=== PATIENT | female | born 1945 | race Caucasian/White ===

== ENCOUNTER 2021-07-06 16:58 | Inpatient (IN) | payer MEDICARE, OTHER, SELFPAY ==
[2021-07-06 17:51] VITALS: BP 149/72; PULSE 63; RESP 18; TEMP 37.1; O2SAT 93; BMI 44.8
[2021-07-06 20:28] VITALS: BP 127/68; PULSE 58; RESP 18; O2SAT 98
--- NOTE | 2021-07-06 20:45 | XRR_ITS ---
PROCEDURE INFORMATION: Exam: XR Chest Exam date and time: 07/06/2021 8:45 PM Age: 76 years old Clinical indication: Apnea; Patient HX: SOB 1 week; Additional info: AMS TECHNIQUE: Imaging protocol: XR of the chest. Views: 1 view. COMPARISON: [facility] Abdomen 1 view 08/31/2019 11:06 AM FINDINGS: Lungs: Lungs are clear. Pleural spaces: There is no pleural effusion or pneumothorax. Heart/Mediastinum: The cardiac silhouette is within normal limits of size given AP technique. Bones/joints: Bones are unremarkable. XR/XR chest 1V portable [id number] IMPRESSION: No acute findings.
--- NOTE | 2021-07-06 20:45 | CTR_ITS ---
PROCEDURE INFORMATION: Exam: CT Head Without Contrast Exam date and time: 07/06/2021 8:45 PM Age: 76 years old Clinical indication: Altered mental status/memory loss; Additional info: AMS TECHNIQUE: Imaging protocol: Computed tomography of the head without contrast. Radiation optimization: All CT scans at this facility use at least one of these dose optimization techniques: automated exposure control; mA and/or kV adjustment per patient size (includes targeted exams where dose is matched to clinical indication); or iterative reconstruction. COMPARISON: No relevant prior studies available. RADIATION DOSE METRICS: Total DLP (mGy-cm): 927.55 FINDINGS: Brain: The brain is unremarkable. There is no mass effect or significant white matter disease. There is no acute intracranial hemorrhage. Cerebral ventricles: There is no significant ventricular dilation. The basal cisterns are unremarkable. Paranasal sinuses: The paranasal sinuses are clear. Mastoid air cells: The mastoid air cells are clear. Bones/joints: The calvarium is intact. Soft tissues: Unremarkable. CT/CT head wo con* [id number] IMPRESSION: No acute intracranial abnormality. Radiation Dose CTDIVOL = (mGy): DLP = 927.55 (mGy-cm)
[2021-07-06 20:46] VITALS: PULSE 62; RESP 18; TEMP 37.1; O2SAT 98
[2021-07-06 21:25] LABS: Add Urine Microscopic? YES; Bilirubin Urine Neg (Negative); Blood Urine 2+ (Negative); Glucose Urine UA Norm (Normal); Ketones Urine Negative (Negative); Leukocyte Esterase Urine 2+ (Negative); Nitrate Urine Positive (Negative); Protein Urine Neg (Negative); Urine Color Yellow (Yellow); Urobilinogen Urine Norm (Negative); pH Urine 5 (5-7)
[2021-07-06 21:27] LABS: Add Urine Culture? No; Bacteria Urine 4+ /hpf; Squamous Epithelial Cell Urine 25-40 /hpf (0-5); WBC Urine >100 /hpf (0-5)
[2021-07-06 22:54] VITALS: BP 157/73; PULSE 55; RESP 18; TEMP 37.1; O2SAT 100
[2021-07-06 23:05] LABS: Basophils # 0.1 10^3/uL (0.0-0.1); Basophils % 0.7 %; Eosinophils # 0.2 10^3/uL (0.0-0.8); Eosinophils % 2.5 %; Hematocrit 38.6 % (37.0-47.0); Hemoglobin 12.1 g/dL (11.5-15.3); Lymphocytes # 2.8 10^3/uL (0.8-4.8); Lymphocytes % 29.2 %; Mean Corpuscular HGB Conc 31.3 g/dL (30.0-36.0); Mean Corpuscular Hemoglobin 27.7 pg (28.0-34.0); Mean Corpuscular Volume 88.3 fl (81-99); Mean Platelet Volume 8.4 fL (7.4-10.4); Monocytes # 0.7 10^3/uL (0.2-0.9); Monocytes % 6.9 %; Neutrophils # 5.81 10^3/uL (1.8-7.7); Neutrophils % 60.5 %; Nucleated Red Blood Cells % 0 %; Platelet Count 295 10^3/cmm (130-400); Red Blood Count 4.37 10^6/uL (4.1-5.3); Red Cell Distribution Width 14.6 % (12.1-15.1); White Blood Count 9.6 10^3/uL (4.0-10.0)
--- NOTE | 2021-07-06 23:08 | ED_ITS ---
HPI - Neuro Symptoms/Deficit General: Chief Complaint: Neuro Symptoms/Deficit Stated Complaint: weakness, dementia-confused, npu eval per Time Seen by Provider: 07/06/21 20:11 Source: patient, family (), RN notes reviewed and old records reviewed Mode of arrival: ambulatory Limitations: other (dementia) History of Present Illness: HPI Narrative: 76-year-old female patient was brought into the emergency department by her with concerns worsening dementia. He states that she has been diagnosed with Alzheimer's dementia and that for the last 6 months or so she has been having trouble sleeping. He also states that in the last week or so she has been wandering a lot and leaving the house and it makes it hard for him to keep track of her. He states that she is complaining of abdominal pain, although the patient denies any pain at this time. Associated symptoms: Deny chest pain, cough, diaphoresis, fevers/chills, headache(s), anorexia, malaise, nausea, seizures, short of breath, syncope, tingling, vertigo, vomiting or weakness Review of Systems General: Reports: 10 or more systems reviewed and unremarkable except in HPI and below Const: Denies: malaise or diaphoresis Card: Denies: chest pain or syncope GI: Denies: nausea or vomiting Neuro: Denies: headache(s) or vertigo Physical Exam Const: COMMON NORMALS: no acute distress, average body habitus, no limitations, healthy appearing, alert and well nourished HENMT: COMMON NORMALS: normocephalic, atraumatic and moist oral mucous membranes HEAD & SCALP: normocephalic and atraumatic Eye: COMMON NORMALS: Equal, round and reactive pupils present, EOMs intact bilaterally, conjunctivae normal and no scleral icterus CONJUNCTIVA: Yes conjunctivae normal PUPIL: Yes Equal, round and reactive pupils present Neck/C-Spine: COMMON NORMALS: no meningeal signs and no JVD Resp: COMMON NORMALS: normal respiratory effort, No retractions, No use of accessory muscles, clear to auscultation bilaterally and percussion normal AUSCULTATION: clear to auscultation bilaterally PERCUSSION: percussion normal Cardio: COMMON NORMALS: no JVD, regular rate, regular rhythm, S1 normal heart sound present, S2 normal heart sound present, No gallops present (Cardio), No clicks present (Cardio), No murmurs present (Cardio), No rub (Cardio) and Peripheral pulses 2+ throughout RATE: regular rate RHYTHM: regular rhythm HEART SOUNDS: S1 normal heart sound present and S2 normal heart sound present PERIPHERAL PULSES: Peripheral pulses 2+ throughout GI: COMMON NORMALS: Normal to inspection, nondistended, normoactive bowel sounds present, Soft to palpation, non-tender, No hepatosplenomegaly present, no masses and no bruits PALPATION: Yes Soft to palpation and Yes No hepatosplenomegaly present Extremity: COMMON NORMALS: normal to inspection, full ROM, capillary refill normal, no calf tenderness and no pedal edema Neuro: SENSORIUM/ORIENTATION: Yes alert and Yes Orientation impaired MENINGEAL SIGNS: Yes no meningeal signs Skin: COMMON NORMALS: no rashes or lesions noted, no wounds, turgor normal, no jaundice, no petechiae and no mottling GENERAL SKIN EXAM: no rashes or lesions noted and turgor normal Course Reevaluation(s): Reevaluation #1: Discussed her lab and imaging findings with her. Explained to the patient and her that she has a urinary tract infection. Was going to discharge her home, however the patient refused to go home with her . She said she wants to go to another house where they used to live but in [place] but not the current apartment. I tried to reason with her but she was adamant that that was what she was going to go to and was not going to leave with her . Because of these as her is an older gentleman I do not think it would be safe for him to take her home if she does not want to go with him. I have a feeling she may become physically violent. I therefore think it would be better for him and for her if she is admitted overnight and the disposition made in the morning. I had a conversation with the about long-term placement in a residential if he is unable to care for her. He states that he has not really thought about it but if he has to he has a residential in mind when he would like to place as he has been there in the past. Time: 23:40 Consultations: Consultation #1: Discussed the patient with Dr. Ball, hospitalist and she kindly accepted the patient to her service. Time: 23:57 Vital Signs: Vital signs: Vital Signs Temperature 98.7 F 07/07/21 01:03 Pulse Rate 56 L 07/07/21 01:03 Respiratory Rate 15 07/07/21 01:03 Blood Pressure 132/79 07/07/21 01:03 Pulse Oximetry 97 07/07/21 01:03 MDM - Neuro Symptoms/Deficit MDM Narrative: Medical decision making narrative: This unfortunate patient has a history of dementia and has had increased behaviors that I think are related to her dementia. She is sleeping less and has begun wandering around at night. She will likely has sundowning. In the emergency department work-up was unremarkable other than a urinary tract infection. However the patient refused to go home with her and have concerns that she may physically resist him and may becoming violent with the way she was adamantly refusing. Her is a frail elderly man and i am fearful his and the patient's safety. I therefore advised that the patient be admitted to the hospital overnight and we can work on safe and appropriate disposition during the day tomorrow. Medical Records: Attestation: I reviewed the patient's medical records. Lab Data: Attestation: I reviewed the patient's lab results. Labs: Lab Results 07/06/21 07/06/21 07/06/21 Range/Units 20:51 22:51 22:51 WBC 9.6 (4.0-10.0) 10^3/ uL RBC 4.37 (4.1-5.3) 10^6/u L Hgb 12.1 (11.5-15.3) g/dL Hct 38.6 (37.0-47.0) % MCV 88.3 (81-99) fl MCH 27.7 L (28.0-34.0) pg MCHC 31.3 (30.0-36.0) g/dL RDW 14.6 (12.1-15.1) % Plt Count 295 (130-400) 10^3/c mm MPV 8.4 (7.4-10.4) fL Neut % (Auto) 60.5 % Lymph % (Auto) 29.2 % [place] % (Auto) 6.9 % Eos % (Auto) 2.5 % Baso % (Auto) 0.7 % Neut # (Auto) 5.81 (1.8-7.7) 10^3/u L Lymph # (Auto) 2.8 (0.8-4.8) 10^3/u L [place] # (Auto) 0.7 (0.2-0.9) 10^3/u L Eos # (Auto) 0.2 (0.0-0.8) 10^3/u L Baso # (Auto) 0.1 (0.0-0.1) 10^3/u L Nucleated RBC % (a uto) 0 % Nucleated RBCs # 0.0 /100WBC Sodium 136 (136-145) mmol/L Potassium 3.2 L (3.5-5.1) mmol/L Chloride 98 (98-107) mmol/L Carbon Dioxide 27 (22-29) mmol/L Anion Gap 14.2 (5-19) BUN 20 (8-23) mg/dL Creatinine 0.6 (0.5-0.9) mg/dL GFR Calculation Not Reportable Glucose 112 (65-115) mg/dL Calculated Osmolal ity 285 (285-295) mOsm/k g Calcium 8.7 (8.5-10.5) mg/dL Total Bilirubin 0.3 (0.15-1.2) mg/dL AST 16 (0-32) U/L ALT 16 (0-33) U/L Alkaline Phosphata se 79 (35-105) IU/L C-Reactive Protein 7.2 H (0.0-4.9) mg/L Total Protein 7.0 (6.6-8.7) g/dL Albumin 3.6 (3.5-5.2) g/dL Globulin 3.4 (1.3-4.6) g/dL Urine Color Yellow (Yellow) Urine Appearance Sl cloudy A (CLEAR) Urine pH 5 (5-7) Ur Specific Gravit y 1.020 (1.005-1.030) Urine Protein Neg (Negative) Urine Glucose (UA) Norm (Normal) Urine Ketones Negative (Negative) Urine Blood 2+ H (Negative) Urine Nitrate Positive H (Negative) Urine Bilirubin Neg (Negative) Urine Urobilinogen Norm (Negative) mg/dL Ur Leukocyte Bell ase 2+ H (Negative) Urine RBC 10-15 H (0-2) /hpf Urine WBC >100 H (0-5) /hpf Ur Squamous Epith Cells 25-40 H (0-5) /hpf Amorphous Sediment Not Reportable Urine Bacteria 4+ H (NONE) /hpf 07/06/21 Range/Units 23:15 WBC (4.0-10.0) 10^3/ uL RBC (4.1-5.3) 10^6/u L Hgb (11.5-15.3) g/dL Hct (37.0-47.0) % MCV (81-99) fl MCH (28.0-34.0) pg MCHC (30.0-36.0) g/dL RDW (12.1-15.1) % Plt Count (130-400) 10^3/c mm MPV (7.4-10.4) fL Neut % (Auto) % Lymph % (Auto) % [place] % (Auto) % Eos % (Auto) % Baso % (Auto) % Neut # (Auto) (1.8-7.7) 10^3/u L Lymph # (Auto) (0.8-4.8) 10^3/u L [place] # (Auto) (0.2-0.9) 10^3/u L Eos # (Auto) (0.0-0.8) 10^3/u L Baso # (Auto) (0.0-0.1) 10^3/u L Nucleated RBC % (a uto) % Nucleated RBCs # /100WBC Sodium (136-145) mmol/L Potassium (3.5-5.1) mmol/L Chloride (98-107) mmol/L Carbon Dioxide (22-29) mmol/L Anion Gap (5-19) BUN (8-23) mg/dL Creatinine (0.5-0.9) mg/dL GFR Calculation Glucose (65-115) mg/dL Calculated Osmolal ity (285-295) mOsm/k g Calcium (8.5-10.5) mg/dL Total Bilirubin (0.15-1.2) mg/dL AST (0-32) U/L ALT (0-33) U/L Alkaline Phosphata se (35-105) IU/L C-Reactive Protein (0.0-4.9) mg/L Total Protein (6.6-8.7) g/dL Albumin (3.5-5.2) g/dL Globulin (1.3-4.6) g/dL Urine Color Yellow (Yellow) Urine Appearance Sl cloudy A (CLEAR) Urine pH 5 (5-7) Ur Specific Gravit y 1.015 (1.005-1.030) Urine Protein Neg (Negative) Urine Glucose (UA) Norm (Normal) Urine Ketones Negative (Negative) Urine Blood Neg (Negative) Urine Nitrate Positive H (Negative) Urine Bilirubin Neg (Negative) Urine Urobilinogen Norm (Negative) mg/dL Ur Leukocyte Bell ase 2+ H (Negative) Urine RBC (0-2) /hpf Urine WBC (0-5) /hpf Ur Squamous Epith Cells (0-5) /hpf Amorphous Sediment Urine Bacteria (NONE) /hpf Imaging Data^: CXR: Attestation: I personally reviewed and interpreted this imaging study as follows: Radiologist's impression: [address] [id number] ReportSigned Patient: Medhat Wiseman #: [id number]: 1945cct#:[id number]/Sex: 76 / FADM Date: 07/06/21Loc: ERRoom/Bed:Attending Dr: Ordering Provider/Ordering MD: Rosi Cortes MD, [facility] [place] Date of Service: 07/06/21 Procedure(s): XR chest 1V portable [id number] Accession Number(s): [id number] Report Number: [id number] PROCEDURE INFORMATION: Exam: XR Chest Exam date and time: 07/06/2021 8:45 PM Age: 76 years old Clinical indication: Apnea; Patient HX: SOB 1 week; Additional info: AMS TECHNIQUE: Imaging protocol: XR of the chest. Views: 1 view. COMPARISON: [facility] Abdomen 1 view 08/31/2019 11:06 AM FINDINGS: Lungs: Lungs are clear. Pleural spaces: There is no pleural effusion or pneumothorax. Heart/Mediastinum: The cardiac silhouette is within normal limits of size given AP technique. Bones/joints: Bones are unremarkable. XR/XR chest 1V portable [id number] IMPRESSION: No acute findings. Dictated By:Marcio Luke MDSigned By:Marcio Luke MDSigned Date/Time:07/06/21/ 44 CT Head: Attestation: I personally reviewed and interpreted this imaging study as follows: Radiologist's impression: Jess [address] [id number] Scan ReportSigned Patient: Medhat Wiseman #: [id number]: 1945cct#:[id number]/Sex: 76 / FADM Date: 07/06/21Loc: ERRoom/Bed:Attending Dr: Ordering Provider/Ordering MD: Rosi Cortes MD, [facility] [place] Date of Service: 07/06/21 Procedure(s): CT head wo con* [id number] Accession Number(s): [id number] Report Number: [id number] PROCEDURE INFORMATION: Exam: CT Head Without Contrast Exam date and time: 07/06/2021 8:45 PM Age: 76 years old Clinical indication: Altered mental status/memory loss; Additional info: AMS TECHNIQUE: Imaging protocol: Computed tomography of the head without contrast. Radiation optimization: All CT scans at this facility use at least one of these dose optimization techniques: automated exposure control; mA and/or kV adjustment per patient size (includes targeted exams where dose is matched to clinical indication); or iterative reconstruction. COMPARISON: No relevant prior studies available. RADIATION DOSE METRICS: Total DLP (mGy-cm): 927.55 FINDINGS: Brain: The brain is unremarkable. There is no mass effect or significant white matter disease. There is no acute intracranial hemorrhage. Cerebral ventricles: There is no significant ventricular dilation. The basal cisterns are unremarkable. Paranasal sinuses: The paranasal sinuses are clear. Mastoid air cells: The mastoid air cells are clear. Bones/joints: The calvarium is intact. Soft tissues: Unremarkable. CT/CT head wo con* [id number] IMPRESSION: No acute intracranial abnormality. Radiation Dose CTDIVOL = (mGy): DLP = 927.55 (mGy-cm) Dictated By:Marcio Luke MDSigned By:Marcio Luke MDSigned Date/Time:07/06/21/ 56 Discharge Plan Discharge Patient Disposition: Admitted As Inpatient Admit Provider: Gwen Ball Clinical Impression: UTI (urinary tract infection) Qualifiers: Urinary tract infection type: acute cystitis Hematuria presence: without hematuria Qualified Code(s): N30.00 - Acute cystitis without hematuria Dementia Qualifiers: Dementia type: unspecified type Dementia behavioral disturbance: with behavioral disturbance Qualified Code(s): F03.91 - Unspecified dementia with behavioral disturbance Condition: Stable Coding Level of Care Code ED Vending Machine Host/Hostess for Chg Fwd Exam Comprehensive
[2021-07-06 23:29] LABS: Charge for UA Resulting for Rev
[2021-07-06 23:31] LABS: Alanine Aminotransferase 16 U/L (0-33); Albumin Level 3.6 g/dL (3.5-5.2); Alkaline Phosphatase 79 IU/L (35-105); Anion Gap 14.2 (5-19); Aspartate Amino Transferase 16 U/L (0-32); Blood Urea Nitrogen 20 mg/dL (8-23); C Reactive Protein 7.2 mg/L (0.0-4.9); Calcium 8.7 mg/dL (8.5-10.5); Carbon Dioxide 27 mmol/L (22-29); Chloride 98 mmol/L (98-107); Globulin 3.4 g/dL (1.3-4.6); Glucose 112 mg/dL (65-115); Osmolality Calculated 285 mOsm/kg (285-295); Potassium 3.2 mmol/L (3.5-5.1); Sodium 136 mmol/L (136-145); Total Bilirubin 0.3 mg/dL (0.15-1.2)
[2021-07-06 23:40] LABS: Blood Urine Neg (Negative); Glucose Urine UA Norm (Normal); Ketones Urine Negative (Negative); Protein Urine Neg (Negative); Specific Gravity, Urine 1.015 (1.005-1.030); Urine Color Yellow (Yellow); pH Urine 5 (5-7)
[2021-07-06 23:41] LABS: Add Urine Microscopic? YES; Bilirubin Urine Neg (Negative); Leukocyte Esterase Urine 2+ (Negative); Nitrate Urine Positive (Negative); Urobilinogen Urine Norm (Negative)
[2021-07-07] VITALS (10 sets, daily range): BP systolic 108–137; BP diastolic 62–84; PULSE 54–78; RESP 15–18; TEMP 36.7–37.1; O2SAT 92–99; BMI 45.2
[2021-07-07] MEDS: cefTRIAXone 1,000 MG in sodium chloride 0.9% (plus) 50 ML 100 MG IV ×2 (00:50→19:37)
--- NOTE | 2021-07-07 01:41 | PM.HP ---
Providers/Chief Complaint Admitting Physician: Gwen Ball MD Chief Complaint: weakness, dementia-confused, npu eval per History of Present Illness Limited history is available at this time due to patient's dementia. History is obtained from talking to ER physician. is not currently reachable at this time. Petty Wiseman is a 76 year old female with a past medical history of dementia who was brought into the emergency room by her due to worsening confusion over the past 2 weeks., Uncertain of her current baseline as cannot get details from her . There has been no history of fever cough dyspnea chest pain palpitations dysuria, abdominal pain nausea or vomiting. Work-up in the ER today was notable for a positive UA with positive nitrite and leuk esterase and high WBC consistent with a urinary tract infection. Patient is otherwise hemodynamically stable. At this present time she is able to correctly tell me her name , her date of is April 05, however she does not know the year. She correctly identifies her as cassandra. She tells me she is 36 years old. She knows that she is in a hospital but does not know which one. She does not know the president. She thinks she came to the hospital today as her left arm needed to be evaluated, however is unable to tell me what was specifically going on with the arm. Review of Systems General: Reports: ROS unobtainable due to medical condition Medications/Allergies Allergies Allergy/AdvReac Type Severity Reaction Status Date / Time tetanus toxoid, adsorbed Allergy ALGY-Hives Verified 07/06/21 17:50 Vitals/I&O/Wt Last Vital Signs Temp 98.7 F 07/07/21 01:03 Pulse 56 L 07/07/21 01:03 Resp 15 07/07/21 01:03 BP 132/79 07/07/21 01:03 Pulse Ox 97 07/07/21 01:03 Weight last 48 hrs Weight 119.465 kg Weight 111.13 kg Physical Exam Narrative: EXAM NARRATIVE: GENERAL: Awake, alert, oriented x1, in no acute distress. [] HEENT: Normocephalic, atraumatic, PERRLA. [] CHEST: Clear to auscultation bilaterally. [] CVS: S1, S2 normal. No murmur, rubs, gallops. Peripheral pulses palpable. [] ABDOMEN: Soft, nontender. Nondistended. Bowel sounds heard. [] NEUROVASCULAR: Awake, disoriented, confused. Power 5/5 all extremities. DTR+ [] EXTREMITIES: No edema. [] Data : 07/06/21 22:51 07/06/21 22:51 Other Labs: Laboratory Results WBC 9.6 10^3/uL (4.0-10.0) 07/06/21 22:51 RBC 4.37 10^6/uL (4.1-5.3) 07/06/21 22:51 Hgb 12.1 g/dL (11.5-15.3) 07/06/21 22:51 Hct 38.6 % (37.0-47.0) 07/06/21 22:51 MCV 88.3 fl (81-99) 07/06/21 22:51 MCH 27.7 pg (28.0-34.0) L 07/06/21 22:51 MCHC 31.3 g/dL (30.0-36.0) 07/06/21 22:51 RDW 14.6 % (12.1-15.1) 07/06/21 22:51 Plt Count 295 10^3/cmm (130-400) 07/06/21 22:51 MPV 8.4 fL (7.4-10.4) 07/06/21 22:51 Neut % (Auto) 60.5 % 07/06/21 22:51 Lymph % (Auto) 29.2 % 07/06/21 22:51 [place] % (Auto) 6.9 % 07/06/21 22:51 Eos % (Auto) 2.5 % 07/06/21 22:51 Baso % (Auto) 0.7 % 07/06/21 22:51 Neut # (Auto) 5.81 10^3/uL (1.8-7.7) 07/06/21 22:51 Lymph # (Auto) 2.8 10^3/uL (0.8-4.8) 07/06/21 22:51 [place] # (Auto) 0.7 10^3/uL (0.2-0.9) 07/06/21 22:51 Eos # (Auto) 0.2 10^3/uL (0.0-0.8) 07/06/21 22:51 Baso # (Auto) 0.1 10^3/uL (0.0-0.1) 07/06/21 22:51 Nucleated RBC % (auto) 0 % 07/06/21 22:51 Nucleated RBCs # 0.0 /100WBC 07/06/21 22:51 Sodium 136 mmol/L (136-145) 07/06/21 22:51 Potassium 3.2 mmol/L (3.5-5.1) L 07/06/21 22:51 Chloride 98 mmol/L (98-107) 07/06/21 22:51 Carbon Dioxide 27 mmol/L (22-29) 07/06/21 22:51 Anion Gap 14.2 (5-19) 07/06/21 22:51 BUN 20 mg/dL (8-23) 07/06/21 22:51 Creatinine 0.6 mg/dL (0.5-0.9) 07/06/21 22:51 GFR Calculation Not Reportable 07/06/21 22:51 Glucose 112 mg/dL (65-115) 07/06/21 22:51 Calculated Osmolality 285 mOsm/kg (285-295) 07/06/21 22:51 Calcium 8.7 mg/dL (8.5-10.5) 07/06/21 22:51 Total Bilirubin 0.3 mg/dL (0.15-1.2) 07/06/21 22:51 AST 16 U/L (0-32) 07/06/21 22:51 ALT 16 U/L (0-33) 07/06/21 22:51 Alkaline Phosphatase 79 IU/L (35-105) 07/06/21 22:51 C-Reactive Protein 7.2 mg/L (0.0-4.9) H 07/06/21 22:51 Total Protein 7.0 g/dL (6.6-8.7) 07/06/21 22:51 Albumin 3.6 g/dL (3.5-5.2) 07/06/21 22:51 Globulin 3.4 g/dL (1.3-4.6) 07/06/21 22:51 TSH 1.98 uIU/mL (0.27-4.20) 07/06/21 22:51 Urine Color Yellow (Yellow) 07/06/21 23:15 Urine Appearance Sl cloudy (CLEAR) A 07/06/21 23:15 Urine pH 5 (5-7) 07/06/21 23:15 Ur Specific [place] 1.015 (1.005-1.030) 07/06/21 23:15 Urine Protein Neg (Negative) 07/06/21 23:15 Urine Glucose (UA) Norm (Normal) 07/06/21 23:15 Urine Ketones Negative (Negative) 07/06/21 23:15 Urine Blood Neg (Negative) 07/06/21 23:15 Urine Nitrate Positive (Negative) H 07/06/21 23:15 Urine Bilirubin Neg (Negative) 07/06/21 23:15 Urine Urobilinogen Norm mg/dL (Negative) 07/06/21 23:15 Ur Leukocyte Esterase 2+ (Negative) H 07/06/21 23:15 Urine RBC 10-15 /hpf (0-2) H 07/06/21 20:51 Urine WBC >100 /hpf (0-5) H 07/06/21 20:51 Ur Squamous Epith Cells 25-40 /hpf (0-5) H 07/06/21 20:51 Amorphous Sediment Not Reportable 07/06/21 20:51 Urine Bacteria 4+ /hpf (NONE) H 07/06/21 20:51 Impressions Chest X-Ray 07/06/21 20:45 IMPRESSION: No acute findings. Head CT 07/06/21 20:45 IMPRESSION: No acute intracranial abnormality. Radiation Dose CTDIVOL = (mGy): DLP = 927.55 (mGy-cm) A&P Assessment and plan (1) UTI (urinary tract infection): Status: Acute Qualifiers: Hematuria presence: without hematuria Urinary tract infection type: acute cystitis Qualified Code(s): N30.00 - Acute cystitis without hematuria (2) Dementia: Status: Acute Qualifiers: Dementia behavioral disturbance: with behavioral disturbance Dementia type: unspecified type Qualified Code(s): F03.91 - Unspecified dementia with behavioral disturbance Additional A&P Information 76-year-old lady with dementia presenting with worsening confusion over the last 2 weeks, on further evaluation found to have a UTI. Admit to MedSurg and observation. Empiric ceftriaxone 1 g IV every 24 hours Urine culture is currently pending. Patient is currently oriented x2, awaiting confirmation of baseline with . Attestations Medical Necessity Statement*: Less than 2 midnight admission anticipated for above defined care Coding Level of Care Code Acute [employer] Build[employer] Decorator for Chg Fwd Diagnoses UTI (urinary tract infection) N30.00 Hematuria presence: without hematuria Urinary tract infection type: acute cystitis Dementia F03.91 Dementia behavioral disturbance: with behavioral disturbance Dementia type: unspecified type
[2021-07-07] MEDS: enoxaparin 30 mg/0.3 mL Syringe SUBCUT (02:01)
[2021-07-07 02:22] LABS: Thyroid Stimulating Hormone 1.98 uIU/mL (0.27-4.20)
[2021-07-07] MEDS: pantoprazole DR 40 mg Tablet PO (09:07)
--- NOTE | 2021-07-07 09:19 | USR_ITS ---
PROCEDURE INFORMATION: Exam: US Retroperitoneal; Complete; Kidneys and Bladder Exam date and time: 07/07/2021 9:19 AM Age: 76 years old Clinical indication: Other: UTI; Additional info: UTI, R/O stone TECHNIQUE: Imaging protocol: Real-time ultrasound of the retroperitoneum with image documentation. Complete exam focused on the kidneys and bladder. COMPARISON: [facility] Abdomen 1 view 08/31/2019 11:06 AM FINDINGS: Right kidney: Lower pole cyst 1.1 cm x 0.9 cm x 1.2 cm. The right kidney measures 12.5 cm x 4.8 cm x 4.4 cm Left kidney: Parapelvic cyst lower pole 2 cm x 2 cm x 0.8 cm No stones. No hydronephrosis. 11.3 cm x 6.7 cm x 3.9 cm Urinary bladder: Is not visible Other findings: Inferolateral cyst 3 cm x 2.6 cm x 2.4 cm No stones. No hydronephrosis. US/US renal BI* [id number] IMPRESSION: 1. Bilateral benign renal cyst 2. Otherwise unremarkable kidneys 3. Urinary bladder is not visible
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
[2021-07-08] MEDS: haloperidol inj 5 mg/mL INJ 1 mL 2 MG IM (02:16)
--- NOTE | 2021-07-08 02:17 | PC.NURSE ---
Pt woke up very agitated and was yelling at sitter. Pt was wanting to leave hospital, then she was angry at nurses. IM haldol was administered by nurse.
[2021-07-08 06:16] LABS: Basophils # 0.1 10^3/uL (0.0-0.1); Basophils % 0.5 %; Eosinophils # 0.2 10^3/uL (0.0-0.8); Eosinophils % 2.3 %; Hematocrit 37.1 % (37.0-47.0); Hemoglobin 11.5 g/dL (11.5-15.3); Lymphocytes # 2.1 10^3/uL (0.8-4.8); Lymphocytes % 23.2 %; Mean Corpuscular Hemoglobin 27.6 pg (28.0-34.0); Mean Corpuscular Volume 89.2 fl (81-99); Mean Platelet Volume 8.4 fL (7.4-10.4); Monocytes # 0.7 10^3/uL (0.2-0.9); Monocytes % 7.2 %; Neutrophils # 6.07 10^3/uL (1.8-7.7); Neutrophils % 66.5 %; Nucleated Red Blood Cells % 0 %; Platelet Count 245 10^3/cmm (130-400); Red Blood Count 4.16 10^6/uL (4.1-5.3); Red Cell Distribution Width 14.6 % (12.1-15.1); White Blood Count 9.1 10^3/uL (4.0-10.0)
--- NOTE | 2021-07-08 06:19 | PC.NURSE ---
ROUNDING NOTE Slept after receiving IM Haldol. Awake and up to bathroom at this time. Confused but very cooperative and pleasant at this time. No further agitation observed. 1:1 sitter at bedside through shift
[2021-07-08 06:44] LABS: Alanine Aminotransferase 14 U/L (0-33); Albumin Level 3.4 g/dL (3.5-5.2); Alkaline Phosphatase 77 IU/L (35-105); Anion Gap 14.2 (5-19); Aspartate Amino Transferase 16 U/L (0-32); Blood Urea Nitrogen 16 mg/dL (8-23); Calcium 8.6 mg/dL (8.5-10.5); Carbon Dioxide 26 mmol/L (22-29); Chloride 98 mmol/L (98-107); Glucose 112 mg/dL (65-115); Magnesium 2.2 mg/dL (1.7-2.3); Osmolality Calculated 282 mOsm/kg (285-295); Phosphorus 3.3 mg/dL (2.5-4.5); Potassium 3.2 mmol/L (3.5-5.1); Sodium 135 mmol/L (136-145); Total Bilirubin 0.5 mg/dL (0.15-1.2); Total Protein 6.4 g/dL (6.6-8.7)
[2021-07-08 07:35] VITALS: BP 144/72; PULSE 68; RESP 18; TEMP 37.1; O2SAT 98
[2021-07-08 08:00] VITALS: BP 144/72; PULSE 68; RESP 18; TEMP 37.1
[2021-07-08] MEDS: pantoprazole DR 40 mg Tablet PO (08:09)
--- NOTE | 2021-07-08 08:58 | PC.CHAP ---
Pastoral Care Encounter/Spiritual Assessment Type of Contact [] Declined bird raiser visit [] Patient/Family/Request visit [] Outpatient visit [] Follow-up visit [] Physician referral [] Code/Alert [x] Routine visit [] Staff referral [] Actively dying [] Patient sleeping [] Family support [] [] Out of room [] Palliative care [] [] Receiving care in room [] Pre-surgical visit [] Trauma [] Long length of stay [] ICU visit [] Other: Relational/Emotional Strength [] Patient feels connected with others/family/visitors/staff [] Distress [] Loneliness/isolation [] Abandonment Spirituality of Patient [] Person of [place] [] Attends Anglican of their [place] [] Believes in Prayer [] Reads Bible or Nondenominational materials [] There are Spiritual issues to be addressed Superintendent [employer] Interventions [x] Prayer [] Active listening [] Non-anxious presence [] Spiritual/emotional support [] Crisis/trauma care [] Spiritual counseling [] Bereavement support [] Provided bereavement packet [] Provided Bible/devotional materials [] Provided toy/stuffed animal, coloring book to patient or family member [] Provided Communion [] Anointing/[place] [] Salvation [x] Completed spiritual assessment [] Other: Impact on Illness or Injury [] Angry [] Fearful [] Anxious [] Often cries [] Exhaustion [] Unable to work [] Unable to attend taoist [] Unable to walk/stand [] Unable to read [] Unable to drive [] Unable to eat/drink [] Unable to sleep [] Unable to be with family [] Patient intubated [] Other: Summary Time spent with patient
[2021-07-08] MEDS: potassium chloride ER 20 mEq Tablet 40 MEQ PO (10:14)
[2021-07-08 11:52] VITALS: BP 128/78; PULSE 68; RESP 16; TEMP 36.9; O2SAT 95
[2021-07-08 14:58] LABS: Coronavirus Test Green County Not Detected
[2021-07-08 15:17] VITALS: BP 139/70; PULSE 81; RESP 17; TEMP 36.3; O2SAT 97
[2021-07-08 16:34] VITALS: BP 139/70; PULSE 81; RESP 17; TEMP 36.3; O2SAT 97
--- NOTE | 2021-07-08 23:20 | PM.DCS ---
Discharge Providers Date of Admission: 07/07/21 15:41 Date of Discharge: 07/08/21 Attending Provider at Admission: Gwen Ball MD Attending Provider at Discharge: Fred Sterling MD Diagnoses at Discharge Discharge Diagnosis (1) UTI (urinary tract infection): Status: Acute Qualifiers: Hematuria presence: without hematuria Urinary tract infection type: acute cystitis Qualified Code(s): N30.00 - Acute cystitis without hematuria (2) Dementia: Status: Acute Qualifiers: Dementia behavioral disturbance: with behavioral disturbance Dementia type: unspecified type Qualified Code(s): F03.91 - Unspecified dementia with behavioral disturbance Reason for Visit Reason for Visit: weakness, dementia-confused, npu eval per Hospital Course Hospital Course 76yo F with history of dementia admitted for UTI. treated with IV abx. transitioned to oral abx. symptoms improved. she was discharged in improved condition. Physical Exam Narrative: EXAM NARRATIVE: NAD Lungs:CTA CVS:RRR ABD:soft, NT MSK: moves all extremities Discharge Data Data Completed and Pending: Completed Studies During Hospitalization Category Date Time Status CT head wo con* [id number] Urgent Cat Scan 07/06/21 20:45 Completed XR chest 1V octavia ble [id number] Stat Exams 07/06/21 20:45 Completed US renal BI* [id number] Routine Ultrasound 07/07/21 09:19 Completed Vitals: Last Vital Signs Temp 97.3 F L 07/08/21 16:34 Pulse 81 07/08/21 16:34 Resp 17 07/08/21 16:34 BP 139/70 07/08/21 16:34 Pulse Ox 97 07/08/21 16:34 Discharge Plan Discharge Patient Disposition: Home Condition: Stable Prescriptions: New Klor-Con 10 10 mEq tablet extended release 20 meq PO DAILY Qty: 20 RF: 0 Continued citalopram 10 mg tablet 10 mg PO DAILY RF: 0 amlodipine 5 mg tablet 5 mg PO DAILY RF: 0 hydrochlorothiazide 25 mg tablet 25 mg PO DAILY RF: 0 olmesartan 40 mg tablet 40 mg PO DAILY RF: 0 rosuvastatin 20 mg tablet 20 mg PO DAILY RF: 0 Exelon Patch 4.6 mg/24 hour patch 24 hour 4.6 mg transdermal DAILY RF: 0 Discharge Orders: Discharge Order (Routine); Ordered 07/08/21 Ordered By: Fred Sterling Referrals: Jeffrey Sun MD [Physician] - 07/16/21 11:00 am Discharge Diet: Usual diet Discharge Activity: Resume usual activity Patient Instructions: Potassium Chloride (By mouth), Cefdinir (By mouth), Urinary Tract Infection in Women (GEN), Opioid Safety Discharge Attestations Time Spent in Discharge Care*: less than 30 min Quality Metrics Clinical Quality Measures During this hospital stay, did patient experience: None Coding Level of Care Code Acute g [facility] note Diagnoses UTI (urinary tract infection) N30.00 Hematuria presence: without hematuria Urinary tract infection type: acute cystitis Dementia F03.91 Dementia behavioral disturbance: with behavioral disturbance Dementia type: unspecified type
--- NOTE | 2021-07-11 09:01 | PC.SOCIAL ---
discharge follow up call made, unable to reach, unable to leave a message.
== END 2021-07-08 16:35 | disposition home or self-care (01) | DRG 690 ==
LOC: ER 07-07 00:09 → MEDSURG 07-07 00:28
PROVIDERS: Family Medicine; Admitting Provider Student in an Organized Health Care Education/Training Program; Emergency Provider Family Medicine; Visit Provider Internal Medicine
DX: N30.01 Acute cystitis with hematuria (principal); F02.81 Dementia in other diseases classified elsewhere, unspecified severity, with behavioral disturbance; G30.9 Alzheimer's disease, unspecified; Z20.822 Contact with and (suspected) exposure to COVID-19
CPT/HCPCS: 36415; 70450; 71045; 76770; 80053; 81001; 81003; 83735; 84100; 84443; 85025; 86140; 87040; 87635; 96365; 96372; 97116; 97161; 99285; G0378; J0696; J1630; J1650

== ENCOUNTER 2021-07-24 12:26 | Outpatient (CLI) | payer MEDICARE, OTHER, SELFPAY | END 2021-07-24 12:27 | disposition home or self-care (01) | LOC: LAB 12:30 | PROVIDERS: Visit Provider Family Medicine | DX: R06.00 Dyspnea, unspecified (principal) | CPT/HCPCS: 85378 ==

== ENCOUNTER 2021-07-29 18:05 | Emergency (ER) | payer MEDICARE, OTHER, SELFPAY ==
--- NOTE | 2021-07-29 18:07 | XRR_ITS ---
PROCEDURE INFORMATION: Exam: XR Left Elbow Exam date and time: 07/29/2021 6:07 PM Age: 76 years old Clinical indication: Injury or trauma; Blunt trauma (contusions or hematomas); Injury date: 07/29/2021; Injury details: Patient could not get arm in true ap; Patient HX: Fall today; C/O pain left elbow, RT ankle, MADERA TECHNIQUE: Imaging protocol: XR Left elbow. Views: 3 or more views. COMPARISON: No relevant prior studies available. FINDINGS: Bones/joints: No acute fracture. No dislocation. Normal bone mineralization. No joint effusion. Joint spaces are maintained. Soft tissues: No soft tissue swelling. No radiopaque foreign body. XR/XR elbow LT min 3V* [id number] IMPRESSION: No acute fracture. Followup imaging recommended in 7-14 days if clinical concern for fracture persists.
[2021-07-29 18:15] VITALS: BP 142/85; PULSE 83; RESP 16; TEMP 36.9; O2SAT 100
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
--- NOTE | 2021-07-29 18:25 | CTR_ITS ---
PROCEDURE INFORMATION: Exam: CT Head Without Contrast Exam date and time: 07/29/2021 6:25 PM Age: 76 years old Clinical indication: Injury or trauma; Fall; Blunt trauma (contusions or hematomas); Additional info: Fall, head injury TECHNIQUE: Imaging protocol: Computed tomography of the head without contrast. Radiation optimization: All CT scans at this facility use at least one of these dose optimization techniques: automated exposure control; mA and/or kV adjustment per patient size (includes targeted exams where dose is matched to clinical indication); or iterative reconstruction. COMPARISON: CT head wo con* [id number] 07/06/2021 9:39 PM RADIATION DOSE METRICS: Total DLP (mGy-cm): 951.3 FINDINGS: Brain: Mild diffuse cortical volume loss. Mild hypodensities in supratentorial periventricular and subcortical white matter, consistent with microangiopathy. No intracranial hemorrhage. Cerebral ventricles: No ventriculomegaly. Paranasal sinuses: Visualized sinuses are unremarkable. No fluid levels. Mastoid air cells: Visualized mastoid air cells are well aerated. Vasculature: No hyperdense artery. Bones/joints: Unremarkable. No acute fracture. Soft tissues: Unremarkable. CT/CT head wo con* [id number] IMPRESSION: 1. No acute intracranial abnormality. Radiation Dose CTDIVOL = (mGy): DLP = 951.3 (mGy-cm)
--- NOTE | 2021-07-29 18:26 | XRR_ITS ---
PROCEDURE INFORMATION: Exam: XR Right Ankle Exam date and time: 07/29/2021 6:26 PM Age: 76 years old Clinical indication: Injury or trauma; Blunt trauma; Right; Injury date: 07/29/2021; Prior surgery; Surgery date: 6+ months; Surgery type: RT ankle hardware placed; Patient HX: Fall today; C/O pain RT ankle, MADERA, left elbow pain; Additional info: Fall injury TECHNIQUE: Imaging protocol: XR Right ankle. Views: 3 or more views. COMPARISON: No relevant prior studies available. FINDINGS: Bones/joints: Postsurgical changes consistent with previous tibiotalar joint fusion and resection of the lateral malleolus. No evidence for loosening of the surgical hardware. No acute fracture. No dislocation. Normal bone mineralization. Degenerative changes at the hindfoot. Small plantar calcaneal bone spur. Small calcified enthesophyte at the Achilles tendon insertion. Old, healed fracture of the distal diaphysis of the right fibula. Soft tissues: Mild soft tissue swelling medial to the ankle. No radiopaque foreign body. XR/XR ankle RT min 3V* [id number] IMPRESSION: 1. No acute fracture. Followup imaging recommended in 7-14 days if clinical concern for fracture persists. 2. Postsurgical changes consistent with previous tibiotalar joint fusion and resection of the lateral malleolus. No evidence for loosening of the surgical hardware. 3. Mild soft tissue swelling medial to the ankle. 4. Incidental/nonacute findings are listed in the report.
[2021-07-29 18:33] VITALS: BP 117/83; PULSE 65; RESP 18; O2SAT 97
--- NOTE | 2021-07-29 18:34 | ED_ITS ---
HPI - Fall General: Chief Complaint: Fall Stated Complaint: fall, L elbow injury Time Seen by Provider: 07/29/21 18:20 History of Present Illness: HPI Narrative: 76-year-old female comes in today for injury to the left elbow, right ankle, and neck. Patient states that she was walking up to her front door when she stepped and her foot went off the side of the concrete causing her to fall. Patient reports twisting her right ankle, landing and striking her left elbow against the ground and hitting her occipital scalp. Patient complains mainly of her left elbow but also make some general complaints of her right ankle and her neck. Patient takes medications routinely for cholesterol, blood pressure, depression. Patient responds appropriately to questions. Patient appears well. Associated symptoms-after fall: Reports neck pain Review of Systems General: Reports: 10 or more systems reviewed and unremarkable except in HPI and below Musc: Reports: neck pain and joint pain (left elbow, right ankle) Physical Exam Const: COMMON NORMALS: no acute distress and patient oriented x3 GENERAL APPEARANCE: cooperative HENMT: COMMON NORMALS: normocephalic, TM's normal bilaterally and Normal external nose present HEAD & SCALP: normal to inspection and normocephalic NOSE: Normal external nose present TYMPANIC MEMBRANE: TM's normal bilaterally MOUTH: Normal oral and palatal mucosa present Eye: GENERAL EYE: appearance normal, both eyes and all related structures Neck/C-Spine: COMMON NORMALS: full ROM CERVICAL SPINE: Yes Paracervical muscle tenderness right Lymph: LYMPHATIC: no lymphadenopathy noted Chest: COMMONS NORMALS: normal inspection of the chest Resp: COMMON NORMALS: normal respiratory effort EFFORT & INSPECTION: Yes able to speak in complete sentences Cardio: COMMON NORMALS: regular rate and regular rhythm RATE: regular rate RHYTHM: regular rhythm GI: COMMON NORMALS: non-tender : COMMON NORMALS: Yes no CVA tenderness BLADDER/KIDNEY EXAM: Yes no CVA tenderness Back/Pelvis: COMMON NORMALS: no CVA tenderness and thoracic and lumbar spine normal to inspection Extremity: NARRATIVE EXTREMITY EXAM: Tenderness is noted to the posterior left elbow, normal range of motion is noted. Tenderness is noted to the lateral right ankle, patient is able to bear weight but is guarded with movement. Neuro: COMMON NORMALS: patient oriented x3 and moves all extremities Psych: COMMON NORMALS: mental status grossly normal and cooperative Skin: COMMON NORMALS: no rashes or lesions noted GENERAL SKIN EXAM: no rashes or lesions noted Course Vital Signs: Vital signs: Vital Signs Temperature 98.4 F 07/29/21 18:15 Pulse Rate 65 07/29/21 18:33 Respiratory Rate 18 07/29/21 18:33 Blood Pressure 117/83 07/29/21 18:33 Pulse Oximetry 97 07/29/21 18:33 MDM - Fall MDM Narrative: Medical decision making narrative: Patient comes in for evaluation of injury sustained from a fall this afternoon. Patient had missed stepped on the concrete causing her to twist her right ankle and fall to the ground striking her left elbow and hitting the back of her head. On exam patient appears well. Patient moves all extremities well. Patient has no crepitus or swelling in the elbow or ankle. Patient does have some tenderness in both joints so. No obvious injuries noted to the occiput of the skull. Patient does have some muscle tenderness in the right side of the neck and trapezius area. Differential diagnosis includes intracranial bleeding, fracture, contusion, strain. CT of the head and neck indicated no fractures and no intracranial bleeding. X-rays of the elbow and ankle showed no acute injury. Reviewed exam with patient with recommendations for treatment and follow-up. Patient's reported understanding. Discharge Plan Discharge Patient Disposition: Home Clinical Impression: Fall Qualifiers: Encounter type: initial encounter Qualified Code(s): W19.XXXA - Unspecified fall, initial encounter Contusion of elbow, left Qualifiers: Encounter type: initial encounter Qualified Code(s): S50.02XA - Contusion of left elbow, initial encounter Cervical muscle strain Qualifiers: Encounter type: initial encounter Qualified Code(s): S16.1XXA - Strain of muscle, fascia and tendon at neck level, initial encounter Ankle pain, right Qualifiers: Chronicity: acute Qualified Code(s): M25.571 - Pain in right ankle and joints of right foot Condition: Stable Prescriptions: No Action citalopram 10 mg tablet 10 mg PO DAILY RF: 0 amlodipine 5 mg tablet 5 mg PO DAILY RF: 0 hydrochlorothiazide 25 mg tablet 25 mg PO DAILY RF: 0 olmesartan 40 mg tablet 40 mg PO DAILY RF: 0 rosuvastatin 20 mg tablet 20 mg PO DAILY RF: 0 Exelon Patch 4.6 mg/24 hour patch 24 hour 4.6 mg transdermal DAILY RF: 0 Klor-Con 10 10 mEq tablet extended release 20 meq PO DAILY Qty: 20 RF: 0 Discharge Orders: Discharge ED (Routine); Ordered 07/29/21 Ordered By: Federico Reynolds Discharge Diet: Usual diet Discharge Activity: Increase activity as tolerated Patient Instructions: Musculoskeletal Pain (ED), Opioid Safety Activity Restrictions/Additional Instructions: Activity as tolerated. Use acetaminophen, Tylenol, 1000 mg every 6 hours as needed for pain. Use ice and heat for further pain relief. Follow-up with primary care for further instruction. Return to the ER for new concerns. Coding Level of Care Code ED Clinical Care Coordinator for Sridharg Fwd Exam Comprehensive
== END 2021-07-29 19:51 | disposition home or self-care (01) ==
PROVIDERS: Emergency Provider Nurse Practitioner Family
DX: S50.02XA Contusion of left elbow, initial encounter (principal); S16.1XXA Strain of muscle, fascia and tendon at neck level, initial encounter; M25.571 Pain in right ankle and joints of right foot; W17.89XA Other fall from one level to another, initial encounter
CPT/HCPCS: 70450; 72125; 73080; 73610; 99282

== ENCOUNTER 2022-04-15 13:51 | Emergency (ER) | payer MEDICARE, MEDICAID, SELFPAY ==
[2022-04-15 14:11] VITALS: BP 90/61; PULSE 77; RESP 20; TEMP 36.4; O2SAT 96
--- NOTE | 2022-04-15 16:18 | W.ED.GENADLT ---
HPI - General Adult General: Chief complaint: General Medical Stated complaint: fall Time Seen by Provider: 04/15/22 16:18 History of Present Illness: Patient is a 77-year-old female with a history of morbid obesity who presents the emergency room after an episode of fall which occurred around 3 PM yesterday. Patient tells me that she denies any chest pain, shortness breath palpitation or lightheadedness prior to the episode of fall. Earlier this afternoon, patient began developing right upper quadrant and left lower quadrant abdominal pain. Patient denies any nausea/vomiting fever/chill, diarrhea melena/hematochezia. Patient has no decreased p.o. intake. Patient tells me that her only prior surgery is cholecystectomy. Denies any history of renal colic. Reports mild dysuria symptoms. Denies any chest pain shortness breath palpitation lightheadedness, cough, runny nose, or sore throat today. No focal neurological complaints. Onset:1 day ago fall Duration:once Location:home Severity:moderate Associated symptoms: Deny chest pain, dyspnea, nausea, rash, palpitations or vomiting Review of Systems Const: Denies: fever(s) or chills Eyes: Denies: change in vision ENMT: Denies: mouth pain Card: Denies: chest pain or palpitations Resp: Denies: dyspnea or non-productive cough GI: Reports: abdominal pain; Denies: nausea, vomiting or diarrhea : Reports: dysuria Musc: Denies: extremity pain Skin/Breast: Denies: rash or new lesions Neuro: Denies: weakness in extremities Psych: Reports: other (Normal mood) Joaquim/Lymph: Denies: easy bruising PFS ED PFSH: Medical History Cholecystectomy planned Dementia Social History Smoking and tobacco status: never smoked Alcohol intake: never Substance/Drug Use: never Physical Exam Const: COMMON NORMALS: alert HENMT: COMMON NORMALS: atraumatic HEAD & SCALP: atraumatic MOUTH: moist mucous membranes not abnormal Eye: COMMON NORMALS: EOMs intact bilaterally and conjunctivae normal CONJUNCTIVA: Yes conjunctivae normal Neck/C-Spine: COMMON NORMALS: full ROM and supple Resp: COMMON NORMALS: normal respiratory effort and clear to auscultation bilaterally AUSCULTATION: clear to auscultation bilaterally Cardio: COMMON NORMALS: regular rate RATE: regular rate GI: COMMON NORMALS: Soft to palpation PALPATION: Yes Soft to palpation OTHER: +mlid RUQ and LLQ TTP. NO guarding rebound, guarding, rigidity. No CVA tenderness to percussion. Neg Martinez/Neg McBurney's point tenderness, no suprabupic tenderness to palpation. Extremity: COMMON NORMALS: full ROM Neuro: SENSORIUM/ORIENTATION: Yes alert MOTOR EXAM: No Abnormal motor strength present and Other motor observations present (no focal motor deficits) Psych: COMMON NORMALS: speech normal SPEECH: Yes normal speech MOOD & AFFECT: Yes euthymic mood Course Vital Signs: Vital signs: Vital Signs Temperature 97.6 F 04/15/22 14:11 Pulse Rate 90 04/15/22 20:30 Respiratory Rate 20 H 04/15/22 14:11 Blood Pressure 121/84 04/15/22 20:30 Pulse Oximetry 95 04/15/22 20:30 [facility] - General Adult Medical Decision Making 77-year-old female with a history of cholecystectomy, morbid obesity presenting to the emergency room with complaints of right upper quadrant abdominal pain and right lower quadrant pain since earlier today. In addition patient fell yesterday. No focal signs of trauma or injuries. Patient has mild right upper quadrant and left lower quadrant tenderness to palpation. No guarding rebound tenderness to me. Hemodynamically stable. Work-up today including WBC within normal limit. CT of pelvis negative for any acute findings. CT head negative for any signs of trauma from fall. Patient received IVF Pepcid and GI cocktail reports feeling symptomatically improved. UA wnl. EKG and troponin x 2 with delta <5, do not suspect ACS. Patient has been able to tolerate p.o. without any difficulty. Rx tylenol PRN abd pain, maalox/pepcid PRN dyspepsia, and zofran PRN nausea/vomiting Disposition: Discharge. Patient counseled regarding diagnostic impression, treatment plan. Patient given ED strict return precautions to return for continuation, worsening, or development of new symptoms. Instructed to f/u w/ PCP regarding symptoms today. Patient verbalized understanding. Lab Data : 04/15/22 18:00 04/15/22 18:00 Radiology Impressions Abdomen/Pelvis CT 04/15/22 16:30 IMPRESSION: 1. No acute finding. 2. Benign findings as described above. COMMENTS: 1. Consistent with the [employer]'s Incidental Findings Committee white paper (J Am Carol Ann Radiol 2017): Any incidental adrenal lesion less than or equal to 1 cm is likely benign. No follow-up imaging is recommended for these lesions per consensus recommendations based on imaging criteria. Further lab evaluation could be pursued if warranted based on clinical findings. 2. Consistent with the [employer]'s Incidental Findings Committee white paper (J Am Carol Ann Radiol 2018): Any incidental renal lesion less than 1 cm or classified as too small to characterize, or any incidental cystic renal lesion characterized as simple-appearing, is likely benign. No follow-up imaging is recommended for these lesions per consensus recommendations based on imaging criteria. REFERENCES: Grayson CATES, et al. Management of Incidental Adrenal Masses: A White Paper of the ACR Incidental Findings Committee. J Am Carol Ann Radiol. 2017;14(8):6332-[address]57. Head CT 04/15/22 16:30 IMPRESSION: No acute intracranial abnormality. Laboratory Results WBC 12.9 10^3/uL (4.0-10.0) H 04/15/22 18:00 RBC 4.86 10^6/uL (4.1-5.3) 04/15/22 18:00 Hgb 13.5 g/dL (11.5-15.3) 04/15/22 18:00 Hct 41.1 % (37.0-47.0) 04/15/22 18:00 MCV 84.6 fl (81-99) 04/15/22 18:00 MCH 27.8 pg (28.0-34.0) L 04/15/22 18:00 MCHC 32.8 g/dL (30.0-36.0) 04/15/22 18:00 RDW 14.1 % (12.1-15.1) 04/15/22 18:00 Plt Count 313 10^3/cmm (130-400) 04/15/22 18:00 MPV 8.7 fL (7.4-10.4) 04/15/22 18:00 Neut % (Auto) 65.0 % 04/15/22 18:00 Lymph % (Auto) 26.0 % 04/15/22 18:00 [place] % (Auto) 6.4 % 04/15/22 18:00 Eos % (Auto) 1.4 % 04/15/22 18:00 Baso % (Auto) 0.7 % 04/15/22 18:00 Neut # (Auto) 8.40 10^3/uL (1.8-7.7) H 04/15/22 18:00 Lymph # (Auto) 3.4 10^3/uL (0.8-4.8) 04/15/22 18:00 [place] # (Auto) 0.8 10^3/uL (0.2-0.9) 04/15/22 18:00 Eos # (Auto) 0.2 10^3/uL (0.0-0.8) 04/15/22 18:00 Baso # (Auto) 0.1 10^3/uL (0.0-0.1) 04/15/22 18:00 Nucleated RBC % (auto) 0 % 04/15/22 18:00 Nucleated RBCs # 0.0 /100WBC 04/15/22 18:00 Sodium 133 mmol/L (136-145) L 04/15/22 18:00 Potassium 3.5 mmol/L (3.5-5.1) 04/15/22 18:00 Chloride 95 mmol/L (98-107) L 04/15/22 18:00 Carbon Dioxide 25 mmol/L (22-29) 04/15/22 18:00 Anion Gap 16.5 (5-19) 04/15/22 18:00 BUN 20 mg/dL (8-23) 04/15/22 18:00 Creatinine 0.6 mg/dL (0.5-0.9) 04/15/22 18:00 GFR Calculation Not Reportable 04/15/22 18:00 Glucose 104 mg/dL (65-115) 04/15/22 18:00 Calculated Osmolality 279 mOsm/kg (285-295) L 04/15/22 18:00 Calcium 9.4 mg/dL (8.5-10.5) 04/15/22 18:00 Total Bilirubin 0.3 mg/dL (0.15-1.2) 04/15/22 18:00 AST 20 U/L (0-32) 04/15/22 18:00 ALT 22 U/L (0-33) 04/15/22 18:00 Alkaline Phosphatase 86 IU/L (35-105) 04/15/22 18:00 Troponin T Baseline 18 ng/L (0-10) H 04/15/22 18:00 Troponin T 120 Minute 15.97 ng/L (0-10) H 04/15/22 19:58 Delta Troponin T -2.03 ABS# (0-10) L 04/15/22 19:58 Total Protein 7.6 g/dL (6.6-8.7) 04/15/22 18:00 Albumin 4.2 g/dL (3.5-5.2) 04/15/22 18:00 Globulin 3.4 g/dL (1.3-4.6) 04/15/22 18:00 Lipase 20 U/L (13-60) 04/15/22 18:00 Urine Color Yellow (Yellow) 04/15/22 17:15 Urine Appearance Cloudy (CLEAR) 04/15/22 17:15 Urine pH 5 (5-7) 04/15/22 17:15 Ur Specific [place] 1.020 (1.005-1.030) 04/15/22 17:15 Urine Protein Trace (Negative) 04/15/22 17:15 Urine Glucose (UA) Norm (Normal) 04/15/22 17:15 Urine Ketones Negative (Negative) 04/15/22 17:15 Urine Blood 2+ (Negative) H 04/15/22 17:15 Urine Nitrate Negative (Negative) 04/15/22 17:15 Urine Bilirubin 1+ (Negative) H 04/15/22 17:15 Urine Urobilinogen 1 mg/dL (Negative) H 04/15/22 17:15 Ur Leukocyte Esterase Trace (Negative) H 04/15/22 17:15 Urine RBC 0-4 /hpf (0-2) H 04/15/22 17:15 Urine WBC 0-4 /hpf (0-5) H 04/15/22 17:15 Ur Squamous Epith Cells 10-15 /hpf (0-5) H 04/15/22 17:15 Amorphous Sediment Not Reportable 04/15/22 17:15 Urine Bacteria 3+ /hpf (NONE) H 04/15/22 17:15 Imaging Data Other Imaging: Radiologist's impression: [address] [address] [address] Scan Report Signed Patient: Petty Wiseman Unit #: [id number] : 1945 Age/Sex: 77 / F ADM Date: 04/15/22 Loc: ER Room/Bed: Attending Dr: Ordering Provider/Ordering MD: Jeanna Bhatti MD Date of Service: 04/15/22 Procedure(s): CT head wo con* [id number] Accession Number(s): [id number] Report Number: [id number] PROCEDURE INFORMATION: Exam: CT Head Without Contrast Exam date and time: 04/15/2022 4:44 PM Age: 77 years old Clinical indication: Injury or trauma; Fall; Blunt trauma (contusions or hematomas); Consciousness not specified TECHNIQUE: Imaging protocol: Computed tomography of the head without contrast. Radiation optimization: All CT scans at this facility use at least one of these dose optimization techniques: automated exposure control; mA and/or kV adjustment per patient size (includes targeted exams where dose is matched to clinical indication); or iterative reconstruction. COMPARISON: CT head wo con* [id number] 07/29/2021 6:42 PM RADIATION DOSE METRICS: Total DLP (mGy-cm): 956.39 FINDINGS: Brain: No hemorrhage. No edema. Moderate diffuse cerebral atrophy. No significant white matter disease. No mass effect. Cerebral ventricles: No ventriculomegaly. Paranasal sinuses: Visualized sinuses are unremarkable. No fluid levels. Mastoid air cells: Visualized mastoid air cells are well aerated. Bones/joints: Unremarkable. No acute fracture. Soft tissues: Unremarkable. CT/CT head wo con* [id number] IMPRESSION: No acute intracranial abnormality. ? Dictated By: Chris Castro DO Signed By: Chris Castro DO Signed Date/Time: 04/15/22 1718 DD/ [address] [address] [address] Scan Report Signed Patient: Petty Wiseman Unit #: [id number] : 1945 Age/Sex: 77 / F ADM Date: 04/15/22 Loc: ER Room/Bed: Attending Dr: Ordering Provider/Ordering MD: Jeanna Bhatti MD Date of Service: 04/15/22 Procedure(s): CT abdomen pelvis wo con [id number] Accession Number(s): [id number] Report Number: [id number] PROCEDURE INFORMATION: Exam: CT Abdomen And Pelvis Without Contrast Exam date and time: 04/15/2022 4:49 PM Age: 77 years old Clinical indication: Abdominal pain; Prior surgery; Surgery type: Hyst; Patient HX: --s/p fall , confusion, some nausea and vomiting; Additional info: Abd pain TECHNIQUE: Imaging protocol: Computed tomography of the abdomen and pelvis without contrast. Radiation optimization: All CT scans at this facility use at least one of these dose optimization techniques: automated exposure control; mA and/or kV adjustment per patient size (includes targeted exams where dose is matched to clinical indication); or iterative reconstruction. COMPARISON: CR XR abdomen min 2V [id number] 04/02/2022 1:48 PM RADIATION DOSE METRICS: Total DLP (mGy-cm): 1311.64 FINDINGS: Limitations: The absence of intravenous contrast lessens the sensitivity of this study for solid organ abnormalities. Lungs: There is calcified granuloma in the right lower lobe. Heart: There is severe atherosclerotic calcification of the coronary arteries. Liver: There is no focal abnormality within the liver. Gallbladder and bile ducts: There has been a cholecystectomy. Pancreas: The pancreas is normal. Spleen: 1.5 cm sized hypodense lesion in the spleen not fully evaluated without contrast but likely benign splenic cyst. No follow-up is necessary. Adrenal glands: The right adrenal gland is normal. 3 cm size smooth round nodule left adrenal measuring 6 Hounsfield units. No follow-up is necessary. (Reference: O'Brien-Cross) Kidneys and ureters: 3.4 cm sized cyst lower pole right kidney. There are multiple simple left renal cysts. There is no evidence of hydronephrosis. There is no evidence of renal or ureteral calcifications. Stomach and bowel: There is no evidence of colitis/diverticulitis. Appendix: Not identified. Intraperitoneal space: There is no evidence of free intraperitoneal fluid. Vasculature: The aorta demonstrates mild atherosclerotic calcification. There is no evidence of an abdominal aortic aneurysm. Lymph nodes: Unremarkable. No enlarged lymph nodes. Urinary bladder: Unremarkable as visualized. Reproductive: There has been a hysterectomy. Bones/joints: There is multilevel lumbar stenosis, most severe at L5-S1. 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 No lumbar spine fracture is demonstrated. There is mild chronic appearing wedging of T11. Soft tissues: Unremarkable. CT/CT abdomen pelvis wo con [id number] IMPRESSION: 1. No acute finding. 2. Benign findings as described above. ? COMMENTS: 1. Consistent with the [employer]'s Incidental Findings Committee white paper (J Am Carol Ann Radiol 2017): Any incidental adrenal lesion less than or equal to 1 cm is likely benign. No follow-up imaging is recommended for these lesions per consensus recommendations based on imaging criteria. Further lab evaluation could be pursued if warranted based on clinical findings. 2. Consistent with the [employer]'s Incidental Findings Committee white paper (J Am Carol Ann Radiol 2018): Any incidental renal lesion less than 1 cm or classified as too small to characterize, or any incidental cystic renal lesion characterized as simple-appearing, is likely benign. No follow-up imaging is recommended for these lesions per consensus recommendations based on imaging criteria. ? REFERENCES: Grayson CATES et al. Management of Incidental Adrenal Masses: A White Paper of the ACR Incidental Findings Committee. J Am Carol Ann Radiol. 2017;14(8):4518-1279. ? Dictated By: Nixon Cotton Signed By: Nixon Cotton Signed Date/Time: 04/15/22 174 DD/ 1649 Discharge Plan Discharge Patient Disposition: Home Clinical Impression: Fall, Abdominal pain Condition: Stable Prescriptions: New acetaminophen 500 mg tablet 500 mg PO Q6H PRN (Reason: pain) 5 Days Qty: 20 0RF Pepcid 20 mg tablet 20 mg PO BID PRN (Reason: abdominal pain) 10 Days Qty: 20 0RF Maalox Advanced 1,000-60 mg tablet,chewable 1 tab PO TID PRN (Reason: abdominal pain) 7 Days Qty: 21 0RF No Action citalopram 10 mg tablet 10 mg PO DAILY 0RF amlodipine 5 mg tablet 5 mg PO DAILY 0RF hydrochlorothiazide 25 mg tablet 25 mg PO DAILY 0RF olmesartan 40 mg tablet 40 mg PO DAILY 0RF rosuvastatin 20 mg tablet 20 mg PO DAILY 0RF Exelon Patch 4.6 mg/24 hour patch 24 hour 4.6 mg transdermal DAILY 0RF Klor-Con 10 10 mEq tablet extended release 20 meq PO DAILY Qty: 20 0RF Discharge Orders: Discharge ED (Routine); Ordered 04/15/22 Ordered By: Jeanna Bhatti Referrals: Jeffrey Sun MD [Primary Care Provider] - Discharge Diet: Advance as tolerated Discharge Activity: Increase activity as tolerated Patient Instructions: Abdominal Pain (ED), Fall Prevention (ED) Activity Restrictions/Additional Instructions: Please come back if you have any worsening abdominal pain, fever or chills, nausea or vomiting, diarrhea, blood in the stool, inability hold down liquid or solids, or any new concerning complaints. Coding Level of Care Code ED Qc Chemist for Chg Fwd Exam Comprehensive
--- NOTE | 2022-04-15 16:30 | CTR_ITS ---
PROCEDURE INFORMATION: Exam: CT Head Without Contrast Exam date and time: 04/15/2022 4:44 PM Age: 77 years old Clinical indication: Injury or trauma; Fall; Blunt trauma (contusions or hematomas); Consciousness not specified TECHNIQUE: Imaging protocol: Computed tomography of the head without contrast. Radiation optimization: All CT scans at this facility use at least one of these dose optimization techniques: automated exposure control; mA and/or kV adjustment per patient size (includes targeted exams where dose is matched to clinical indication); or iterative reconstruction. COMPARISON: CT head wo con* [id number] 07/29/2021 6:42 PM RADIATION DOSE METRICS: Total DLP (mGy-cm): 956.39 FINDINGS: Brain: No hemorrhage. No edema. Moderate diffuse cerebral atrophy. No significant white matter disease. No mass effect. Cerebral ventricles: No ventriculomegaly. Paranasal sinuses: Visualized sinuses are unremarkable. No fluid levels. Mastoid air cells: Visualized mastoid air cells are well aerated. Bones/joints: Unremarkable. No acute fracture. Soft tissues: Unremarkable. CT/CT head wo con* [id number] IMPRESSION: No acute intracranial abnormality.
--- NOTE | 2022-04-15 16:30 | ECG_ITS ---
[facility] Test Date: 2022-04-15 Pat Name: Petty Wiseman Department: Room: Gender: Female Administration Dean: : 1945 Requested By: Jeanna Bhatti Order Number: [id number] Daniel MD: Lan Joshi M.D. Measurements Intervals [place] Rate: 64 P: 7 FL: 165 QRS: 44 QRSD: 94 T: 67 QT: 420 QTc: 434 Interpretive Statements SINUS RHYTHM WITH SINUS ARRHYTHMIA No previous ECG available for comparison Electronically Signed On 04-15-2022 17:50:41 CDT by Lan Joshi M.D. [id number]
--- NOTE | 2022-04-15 16:30 | CTR_ITS ---
PROCEDURE INFORMATION: Exam: CT Abdomen And Pelvis Without Contrast Exam date and time: 04/15/2022 4:49 PM Age: 77 years old Clinical indication: Abdominal pain; Prior surgery; Surgery type: Hyst; Patient HX: --s/p fall , confusion, some nausea and vomiting; Additional info: Abd pain TECHNIQUE: Imaging protocol: Computed tomography of the abdomen and pelvis without contrast. Radiation optimization: All CT scans at this facility use at least one of these dose optimization techniques: automated exposure control; mA and/or kV adjustment per patient size (includes targeted exams where dose is matched to clinical indication); or iterative reconstruction. COMPARISON: CR XR abdomen min 2V [id number] 04/02/2022 1:48 PM RADIATION DOSE METRICS: Total DLP (mGy-cm): 1311.64 FINDINGS: Limitations: The absence of intravenous contrast lessens the sensitivity of this study for solid organ abnormalities. Lungs: There is calcified granuloma in the right lower lobe. Heart: There is severe atherosclerotic calcification of the coronary arteries. Liver: There is no focal abnormality within the liver. Gallbladder and bile ducts: There has been a cholecystectomy. Pancreas: The pancreas is normal. Spleen: 1.5 cm sized hypodense lesion in the spleen not fully evaluated without contrast but likely benign splenic cyst. No follow-up is necessary. Adrenal glands: The right adrenal gland is normal. 3 cm size smooth round nodule left adrenal measuring 6 Hounsfield units. No follow-up is necessary. (Reference: [facility]) Kidneys and ureters: 3.4 cm sized cyst lower pole right kidney. There are multiple simple left renal cysts. There is no evidence of hydronephrosis. There is no evidence of renal or ureteral calcifications. Stomach and bowel: There is no evidence of colitis/diverticulitis. Appendix: Not identified. Intraperitoneal space: There is no evidence of free intraperitoneal fluid. Vasculature: The aorta demonstrates mild atherosclerotic calcification. There is no evidence of an abdominal aortic aneurysm. Lymph nodes: Unremarkable. No enlarged lymph nodes. Urinary bladder: Unremarkable as visualized. Reproductive: There has been a hysterectomy. Bones/joints: There is multilevel lumbar stenosis, most severe at L5-S1. 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 No lumbar spine fracture is demonstrated. There is mild chronic appearing wedging of T11. Soft tissues: Unremarkable. CT/CT abdomen pelvis wo con [id number] IMPRESSION: 1. No acute finding. 2. Benign findings as described above. COMMENTS: 1. Consistent with the [employer]'s Incidental Findings Committee white paper (J Am Carol Ann Radiol 2017): Any incidental adrenal lesion less than or equal to 1 cm is likely benign. No follow-up imaging is recommended for these lesions per consensus recommendations based on imaging criteria. Further lab evaluation could be pursued if warranted based on clinical findings. 2. Consistent with the [employer]'s Incidental Findings Committee white paper (J Am Carol Ann Radiol 2018): Any incidental renal lesion less than 1 cm or classified as too small to characterize, or any incidental cystic renal lesion characterized as simple-appearing, is likely benign. No follow-up imaging is recommended for these lesions per consensus recommendations based on imaging criteria. REFERENCES: Grayson CATES et al. Management of Incidental Adrenal Masses: A White Paper of the ACR Incidental Findings Committee. J Am Carol Ann Radiol. 2017;14(8):9465-3344.
[2022-04-15 17:36] LABS: Blood Urine 2+ (Negative); Glucose Urine UA Norm (Normal); Ketones Urine Negative (Negative); Nitrate Urine Negative (Negative); Protein Urine Trace (Negative); Urine Appearance Cloudy (CLEAR); Urine Color Yellow (Yellow); pH Urine 5 (5-7)
[2022-04-15 17:37] LABS: Add Urine Culture? Yes; Add Urine Microscopic? YES; Bacteria Urine 3+ /hpf; Bilirubin Urine 1+ (Negative); Leukocyte Esterase Urine Trace (Negative); RBC Urine 0-4 /hpf (0-2); Urobilinogen Urine 1 mg/dL (Negative); WBC Urine 0-4 /hpf (0-5)
[2022-04-15 17:48] VITALS: BP 120/66; PULSE 72; O2SAT 98
[2022-04-15 18:00] VITALS: PULSE 75; O2SAT 98
[2022-04-15] MEDS: sodium chloride 0.9% 1,000 ML 999 ML IV (18:10)
[2022-04-15] MEDS: famotidine 20 mg/2 mL INJ IVP (18:10)
[2022-04-15 18:25] LABS: Basophils # 0.1 10^3/uL (0.0-0.1); Basophils % 0.7 %; Eosinophils # 0.2 10^3/uL (0.0-0.8); Eosinophils % 1.4 %; Hematocrit 41.1 % (37.0-47.0); Hemoglobin 13.5 g/dL (11.5-15.3); Lymphocytes # 3.4 10^3/uL (0.8-4.8); Mean Corpuscular HGB Conc 32.8 g/dL (30.0-36.0); Mean Corpuscular Hemoglobin 27.8 pg (28.0-34.0); Mean Corpuscular Volume 84.6 fl (81-99); Mean Platelet Volume 8.7 fL (7.4-10.4); Monocytes # 0.8 10^3/uL (0.2-0.9); Monocytes % 6.4 %; Nucleated Red Blood Cells % 0 %; Platelet Count 313 10^3/cmm (130-400); Red Blood Count 4.86 10^6/uL (4.1-5.3); Red Cell Distribution Width 14.1 % (12.1-15.1); White Blood Count 12.9 10^3/uL (4.0-10.0)
[2022-04-15 18:30] LABS: Alanine Aminotransferase 22 U/L (0-33); Albumin Level 4.2 g/dL (3.5-5.2); Alkaline Phosphatase 86 IU/L (35-105); Aspartate Amino Transferase 20 U/L (0-32); Blood Urea Nitrogen 20 mg/dL (8-23); Calcium 9.4 mg/dL (8.5-10.5); Carbon Dioxide 25 mmol/L (22-29); Chloride 95 mmol/L (98-107); Creatinine Clr Calc Pharmacy 63.5547; Globulin 3.4 g/dL (1.3-4.6); Glucose 104 mg/dL (65-115); Lipase 20 U/L (13-60); Osmolality Calculated 279 mOsm/kg (285-295); Sodium 133 mmol/L (136-145); Total Bilirubin 0.3 mg/dL (0.15-1.2); Total Protein 7.6 g/dL (6.6-8.7)
--- NOTE | 2022-04-15 18:30 | ECG_ITS ---
[facility] Test Date: 2022-04-15 Pat Name: Petty Wiseman Department: Room: Gender: Female Emergency Room Rn: : 1945 Requested By: Jeanna Bhatti Order Number: [id number] Daniel MD: Lan Joshi M.D. Measurements Intervals [place] Rate: 72 P: 6 [place]: 172 QRS: 43 QRSD: 95 T: 52 QT: 424 QTc: 467 Interpretive Statements SINUS RHYTHM Compared to ECG 04/15/2022 16:57:20 Sinus arrhythmia no longer present Electronically Signed On 04-16-2022 0:03:19 CDT by Lan Joshi M.D. [id number]
[2022-04-15 18:32] LABS: Troponin(5th) Baseline 18 ng/L (0-10)
[2022-04-15 18:38] LABS: Anion Gap 16.5 (5-19); Potassium 3.5 mmol/L (3.5-5.1)
[2022-04-15 19:00] VITALS: BP 119/72; PULSE 55; O2SAT 98
[2022-04-15] MEDS: morphine 4 mg/mL SDV 1 mL 2 MG IVP (19:20)
[2022-04-15] MEDS: lidocaine 2% viscous 15 ML, aluminum-mag hydrox-simethicon 30 ML, sucralfate oral liq 1 GM PO (19:20)
[2022-04-15 20:00] VITALS: BP 111/51; PULSE 54; O2SAT 97
[2022-04-15 20:29] LABS: Troponin 5 2HR 15.97 ng/L (0-10)
[2022-04-15 20:30] VITALS: BP 121/84; PULSE 90; O2SAT 95
[2022-04-15 20:32] LABS: Troponin 5 2HR Delta -2.03 ABS# (0-10)
== END 2022-04-15 23:40 | disposition home or self-care (01) ==
PROVIDERS: Emergency Provider Emergency Medicine; PCP Family Medicine
DX: R10.11 Right upper quadrant pain (principal); R10.31 Right lower quadrant pain; E66.01 Morbid (severe) obesity due to excess calories; Z68.32 Body mass index [BMI] 32.0-32.9, adult; Z90.49 Acquired absence of other specified parts of digestive tract
CPT/HCPCS: 70450; 74176; 80053; 81001; 83690; 84484; 85025; 87077; 87086; 87186; 93005; 96361; 96374; 96375; 99284; J2270; J3490; J7030

== ENCOUNTER 2022-04-24 13:41 | Emergency (ER) | payer MEDICARE, MEDICAID, SELFPAY ==
[2022-04-24 14:00] VITALS: BP 115/77; PULSE 80; RESP 18; O2SAT 96; BMI 45.7
--- NOTE | 2022-04-24 14:10 | W.ED.ABDPA2 ---
Documented by User: [email or web address] Ku 04/25/22 14:57 HPI - Abdominal Pain General: Chief Complaint: Abdominal Pain Stated Complaint: abd pain Time Seen by Provider: 04/24/22 14:04 History of Present Illness: Patient is a 77-year-old female comes to the ED with abdominal pain. She was seen here in the ED for same complaint back on April 15. Since discharge she says her abdominal pain has gotten more mild. Her abdominal pain is described as intermittent. today her abdominal pain got a little worse, but before arrival to ED her abdominal pain resolved. pain waxes and wanes and is located in the central part/epigastric region the abdomen. pain improves after she has a bowel movement. Past surgical history of cholecystectomy. Abdominal pain worsens after she eats certain foods. Denies any fevers, chills, nausea/vomiting, dysuria, hematuria or constipation. Associated Symptoms: Denies chills, constipation, diarrhea, dysuria, fever(s), hematochezia, hematuria, nausea and vomiting Review of Systems Const: Denies: fever(s), chills or fatigue Eyes: Denies: change in vision or eye discomfort ENMT: Denies: throat pain, odynophagia, nasal discharge or nasal congestion Card: Denies: chest pain, palpitations, edema, swelling of feet/ankles, dyspnea on exertion or orthopnea Resp: Denies: dyspnea, productive cough or non-productive cough GI: Reports: abdominal pain; Denies: nausea, vomiting, diarrhea, constipation or hematochezia : Denies: flank pain, dysuria or hematuria Musc: Denies: neck pain, back pain or extremity swelling Skin/Breast: Denies: rash or new lesions Neuro: Denies: headache(s), numbness in extremities or weakness in extremities PFS ED PFSH: Medical History Cholecystectomy planned Dementia Surgical History History of cholecystectomy Social History Smoking and tobacco status: never smoked Alcohol intake: never Physical Exam Const: COMMON NORMALS: no acute distress and alert GENERAL APPEARANCE: cooperative and comfortable HENMT: COMMON NORMALS: normocephalic HEAD & SCALP: normocephalic MOUTH: Normal oral and palatal mucosa present THROAT: posterior oropharynx normal and uvula midline Neck/C-Spine: COMMON NORMALS: supple GENERAL: Yes normal visual inspection Resp: COMMON NORMALS: normal respiratory effort, No retractions, No use of accessory muscles and clear to auscultation bilaterally AUSCULTATION: clear to auscultation bilaterally Cardio: COMMON NORMALS: regular rate, regular rhythm, S1 normal heart sound present, S2 normal heart sound present, No gallops present (Cardio), No clicks present (Cardio), No murmurs present (Cardio) and Peripheral pulses 2+ throughout RATE: regular rate RHYTHM: regular rhythm HEART SOUNDS: S1 normal heart sound present and S2 normal heart sound present PERIPHERAL PULSES: Peripheral pulses 2+ throughout GI: COMMON NORMALS: Normal to inspection, nondistended, normoactive bowel sounds present, Soft to palpation and no masses PALPATION: Yes Soft to palpation and Yes Tenderness to palpation present (GI) (Epigastric tenderness) : COMMON NORMALS: Yes no CVA tenderness BLADDER/KIDNEY EXAM: Yes no CVA tenderness Back/Pelvis: COMMON NORMALS: no CVA tenderness Extremity: COMMON NORMALS: normal to inspection Neuro: SENSORIUM/ORIENTATION: Yes alert GAIT: Yes Normal gait present Skin: GENERAL SKIN EXAM: dry skin Course Vital Signs: Vital signs: Vital Signs Pulse Rate 76 04/24/22 17:03 Respiratory Rate 18 04/24/22 17:03 Blood Pressure 120/73 04/24/22 17:03 Pulse Oximetry 97 04/24/22 17:03 MDM - Abdominal Pain Medical Decision Making Patient is a 77-year-old female comes to the ED with abdominal pain. She was seen here in the ED for same complaint back on April 15. Since discharge she says her abdominal pain has gotten more mild. Her abdominal pain is described as intermittent. today her abdominal pain got a little worse, but before arrival to ED her abdominal pain resolved. pain waxes and wanes and is located in the central part/epigastric region the abdomen. Vitals are stable. Mild epigastric tenderness to palpation. Rest of her exam is benign. Potassium was 3.2 and she was given a dose of p.o. potassium chloride here in the ED. The rest of her labs were unremarkable. Troponin is negative and ECG showed no acute findings. CT abdomen pelvis showed no acute findings. Patient was diagnosed with epigastric abdominal pain and was told to continue taking her previously prescribed acid reflux medications. I am sending her home with prescription for sucralfate to help with epigastric pain as well. Follow-up with PCP in the next week for reevaluation. Return to ED precautions given. Patient understood and agreed with plan. Lab Data I reviewed the patient's lab results. : 04/24/22 14:00 04/24/22 14:00 Labs/Radiology: Radiology Impressions Abdomen/Pelvis CT 04/24/22 14:44 IMPRESSION: 1. No acute intra-abdominal pelvic abnormalities are identified. 2. Prior hysterectomy and cholecystectomy. 3. Stable LEFT adrenal adenoma. Laboratory Results WBC 10.9 10^3/uL (4.0-10.0) H 04/24/22 14:00 RBC 4.85 10^6/uL (4.1-5.3) 04/24/22 14:00 Hgb 13.3 g/dL (11.5-15.3) 04/24/22 14:00 Hct 40.6 % (37.0-47.0) 04/24/22 14:00 MCV 83.7 fl (81-99) 04/24/22 14:00 MCH 27.4 pg (28.0-34.0) L 04/24/22 14:00 MCHC 32.8 g/dL (30.0-36.0) 04/24/22 14:00 RDW 14.4 % (12.1-15.1) 04/24/22 14:00 Plt Count 311 10^3/cmm (130-400) 04/24/22 14:00 MPV 9.1 fL (7.4-10.4) 04/24/22 14:00 Neut % (Auto) 68.1 % 04/24/22 14:00 Lymph % (Auto) 24.0 % 04/24/22 14:00 [place] % (Auto) 5.3 % 04/24/22 14:00 Eos % (Auto) 1.5 % 04/24/22 14:00 Baso % (Auto) 0.7 % 04/24/22 14:00 Neut # (Auto) 7.41 10^3/uL (1.8-7.7) 04/24/22 14:00 Lymph # (Auto) 2.6 10^3/uL (0.8-4.8) 04/24/22 14:00 [place] # (Auto) 0.6 10^3/uL (0.2-0.9) 04/24/22 14:00 Eos # (Auto) 0.2 10^3/uL (0.0-0.8) 04/24/22 14:00 Baso # (Auto) 0.1 10^3/uL (0.0-0.1) 04/24/22 14:00 Nucleated RBC % (auto) 0 % 04/24/22 14:00 Nucleated RBCs # 0.0 /100WBC 04/24/22 14:00 Sodium 136 mmol/L (136-145) 04/24/22 14:00 Potassium 3.2 mmol/L (3.5-5.1) L 04/24/22 14:00 Chloride 97 mmol/L (98-107) L 04/24/22 14:00 Carbon Dioxide 26 mmol/L (22-29) 04/24/22 14:00 Anion Gap 16.2 (5-19) 04/24/22 14:00 BUN 20 mg/dL (8-23) 04/24/22 14:00 Creatinine 0.8 mg/dL (0.5-0.9) 04/24/22 14:00 GFR Calculation Not Reportable 04/24/22 14:00 Glucose 105 mg/dL (65-115) 04/24/22 14:00 Calculated Osmolality 285 mOsm/kg (285-295) 04/24/22 14:00 Calcium 9.7 mg/dL (8.5-10.5) 04/24/22 14:00 Total Bilirubin 0.7 mg/dL (0.15-1.2) 04/24/22 14:00 AST 15 U/L (0-32) 04/24/22 14:00 ALT 14 U/L (0-33) 04/24/22 14:00 Alkaline Phosphatase 89 IU/L (35-105) 04/24/22 14:00 Troponin T Baseline 18 ng/L (0-10) H 04/24/22 14:00 Troponin T 120 Minute 16.52 ng/L (0-10) H 04/24/22 16:08 Delta Troponin T -1.48 ABS# (0-10) L 04/24/22 16:08 Total Protein 7.8 g/dL (6.6-8.7) 04/24/22 14:00 Albumin 4.2 g/dL (3.5-5.2) 04/24/22 14:00 Globulin 3.6 g/dL (1.3-4.6) 04/24/22 14:00 Lipase 19 U/L (13-60) 04/24/22 14:00 Urine Color Yellow (Yellow) 04/24/22 14:36 Urine Appearance Clear (CLEAR) 04/24/22 14:36 Urine pH 5 (5-7) 04/24/22 14:36 Ur Specific Amo 1.020 (1.005-1.030) 04/24/22 14:36 Urine Protein Neg (Negative) 04/24/22 14:36 Urine Glucose (UA) Norm (Normal) 04/24/22 14:36 Urine Ketones Negative (Negative) 04/24/22 14:36 Urine Blood Neg (Negative) 04/24/22 14:36 Urine Nitrate Negative (Negative) 04/24/22 14:36 Urine Bilirubin Neg (Negative) 04/24/22 14:36 Urine Urobilinogen Norm mg/dL (Negative) 04/24/22 14:36 Ur Leukocyte Esterase Negative (Negative) 04/24/22 14:36 EKG Data EKG 1: EKG interpretation date: 04/24/22 Interpretation: Sinus bradycardia, 51 bpm, no ST segment elevation or depression seen. Discharge Plan Discharge Patient Disposition: Home Clinical Impression: Abdominal pain, epigastric, Hypokalemia Condition: Stable Prescriptions: New sucralfate 1 gram tablet 1 g PO Q6H PRN (Reason: acid reflux/epigastric pain) Qty: 20 0RF No Action citalopram 10 mg tablet 10 mg PO DAILY 0RF amlodipine 5 mg tablet 5 mg PO DAILY 0RF hydrochlorothiazide 25 mg tablet 25 mg PO DAILY 0RF olmesartan 40 mg tablet 40 mg PO DAILY 0RF rosuvastatin 20 mg tablet 20 mg PO DAILY 0RF rivastigmine [Exelon Patch] 4.6 mg/24 hour patch 24 hour 4.6 mg transdermal DAILY 0RF potassium chloride [Klor-Con 10] 10 mEq tablet extended release 20 meq PO DAILY Qty: 20 0RF omeprazole 20 mg capsule,delayed release(DR/EC) 20 mg PO DAILY 0RF Discharge Orders: Discharge ED (Routine); Ordered 04/24/22 Ordered By: Dagoberto Cedillo Referrals: Jeffrey Sun MD [Primary Care Provider] - Discharge Diet: Regular Discharge Activity: Increase activity as tolerated Activity Restrictions/Additional Instructions: Follow-up with medical provider as directed in the next 7 to 10 days for reevaluation. Take medications as prescribed. Return to the ER or your medical provider if condition worsens. Please read and understand discharge instructions. Thank you for choosing [facility] for your healthcare needs today. Please realize this is an emergency room and that we are providing you with a medical screening exam and this may not be complete and all inclusive of all the testing and or work up that you may need to determine your ailment or severity of your illness. It is very important that you follow up as instructed or that you return to the Emergency Department should you have concerns or if your condition changes or worsens in any way. Coding Level of Care Code ED Manager Transit for Chg Fwd Exam Comprehensive Documented by User: Jeanna Bhatti MD 04/30/22 12:08 HPI - Abdominal Pain General: Chief Complaint: Abdominal Pain Stated Complaint: abd pain Time Seen by Provider: 04/24/22 14:04 [facility] ED PFSH: Medical History Cholecystectomy planned Dementia Surgical History History of cholecystectomy Social History Smoking and tobacco status: never smoked Alcohol intake: never Course Vital Signs: Vital signs: Vital Signs Pulse Rate 76 04/24/22 17:03 Respiratory Rate 18 04/24/22 17:03 Blood Pressure 120/73 04/24/22 17:03 Pulse Oximetry 97 04/24/22 17:03 MDM - Abdominal Pain Medical Decision Making Patient is a 77-year-old female comes to the ED with abdominal pain. She was seen here in the ED for same complaint back on April 15. Since discharge she says her abdominal pain has gotten more mild. Her abdominal pain is described as intermittent. today her abdominal pain got a little worse, but before arrival to ED her abdominal pain resolved. pain waxes and wanes and is located in the central part/epigastric region the abdomen. Vitals are stable. Mild epigastric tenderness to palpation. Rest of her exam is benign. Potassium was 3.2 and she was given a dose of p.o. potassium chloride here in the ED. The rest of her labs were unremarkable. Troponin is negative and ECG showed no acute findings. CT abdomen pelvis showed no acute findings. Patient was diagnosed with epigastric abdominal pain and was told to continue taking her previously prescribed acid reflux medications. I am sending her home with prescription for sucralfate to help with epigastric pain as well. Follow-up with PCP in the next week for reevaluation. Return to ED precautions given. Patient understood and agreed with plan. Dr. Bhatti - Patient evaluation, diagnosis, and management was performed independently by Dagoberto Cedillo. I did not personally see the patient nor staff the patient with patient's provider. I did review the patient's note today and I believe this note is consistent. Lab Data : 04/24/22 14:00 04/24/22 14:00 Labs/Radiology: Radiology Impressions Abdomen/Pelvis CT 04/24/22 14:44 IMPRESSION: 1. No acute intra-abdominal pelvic abnormalities are identified. 2. Prior hysterectomy and cholecystectomy. 3. Stable LEFT adrenal adenoma. Laboratory Results WBC 10.9 10^3/uL (4.0-10.0) H 04/24/22 14:00 RBC 4.85 10^6/uL (4.1-5.3) 04/24/22 14:00 Hgb 13.3 g/dL (11.5-15.3) 04/24/22 14:00 Hct 40.6 % (37.0-47.0) 04/24/22 14:00 MCV 83.7 fl (81-99) 04/24/22 14:00 MCH 27.4 pg (28.0-34.0) L 04/24/22 14:00 MCHC 32.8 g/dL (30.0-36.0) 04/24/22 14:00 RDW 14.4 % (12.1-15.1) 04/24/22 14:00 Plt Count 311 10^3/cmm (130-400) 04/24/22 14:00 MPV 9.1 fL (7.4-10.4) 04/24/22 14:00 Neut % (Auto) 68.1 % 04/24/22 14:00 Lymph % (Auto) 24.0 % 04/24/22 14:00 [place] % (Auto) 5.3 % 04/24/22 14:00 Eos % (Auto) 1.5 % 04/24/22 14:00 Baso % (Auto) 0.7 % 04/24/22 14:00 Neut # (Auto) 7.41 10^3/uL (1.8-7.7) 04/24/22 14:00 Lymph # (Auto) 2.6 10^3/uL (0.8-4.8) 04/24/22 14:00 [place] # (Auto) 0.6 10^3/uL (0.2-0.9) 04/24/22 14:00 Eos # (Auto) 0.2 10^3/uL (0.0-0.8) 04/24/22 14:00 Baso # (Auto) 0.1 10^3/uL (0.0-0.1) 04/24/22 14:00 Nucleated RBC % (auto) 0 % 04/24/22 14:00 Nucleated RBCs # 0.0 /100WBC 04/24/22 14:00 Sodium 136 mmol/L (136-145) 04/24/22 14:00 Potassium 3.2 mmol/L (3.5-5.1) L 04/24/22 14:00 Chloride 97 mmol/L (98-107) L 04/24/22 14:00 Carbon Dioxide 26 mmol/L (22-29) 04/24/22 14:00 Anion Gap 16.2 (5-19) 04/24/22 14:00 BUN 20 mg/dL (8-23) 04/24/22 14:00 Creatinine 0.8 mg/dL (0.5-0.9) 04/24/22 14:00 GFR Calculation Not Reportable 04/24/22 14:00 Glucose 105 mg/dL (65-115) 04/24/22 14:00 Calculated Osmolality 285 mOsm/kg (285-295) 04/24/22 14:00 Calcium 9.7 mg/dL (8.5-10.5) 04/24/22 14:00 Total Bilirubin 0.7 mg/dL (0.15-1.2) 04/24/22 14:00 AST 15 U/L (0-32) 04/24/22 14:00 ALT 14 U/L (0-33) 04/24/22 14:00 Alkaline Phosphatase 89 IU/L (35-105) 04/24/22 14:00 Troponin T Baseline 18 ng/L (0-10) H 04/24/22 14:00 Troponin T 120 Minute 16.52 ng/L (0-10) H 04/24/22 16:08 Delta Troponin T -1.48 ABS# (0-10) L 04/24/22 16:08 Total Protein 7.8 g/dL (6.6-8.7) 04/24/22 14:00 Albumin 4.2 g/dL (3.5-5.2) 04/24/22 14:00 Globulin 3.6 g/dL (1.3-4.6) 04/24/22 14:00 Lipase 19 U/L (13-60) 04/24/22 14:00 Urine Color Yellow (Yellow) 04/24/22 14:36 Urine Appearance Clear (CLEAR) 04/24/22 14:36 Urine pH 5 (5-7) 04/24/22 14:36 Ur Specific Amo 1.020 (1.005-1.030) 04/24/22 14:36 Urine Protein Neg (Negative) 04/24/22 14:36 Urine Glucose (UA) Norm (Normal) 04/24/22 14:36 Urine Ketones Negative (Negative) 04/24/22 14:36 Urine Blood Neg (Negative) 04/24/22 14:36 Urine Nitrate Negative (Negative) 04/24/22 14:36 Urine Bilirubin Neg (Negative) 04/24/22 14:36 Urine Urobilinogen Norm mg/dL (Negative) 04/24/22 14:36 Ur Leukocyte Esterase Negative (Negative) 04/24/22 14:36 Discharge Plan Discharge Patient Disposition: Home Clinical Impression: Abdominal pain, epigastric, Hypokalemia Condition: Stable Prescriptions: New sucralfate 1 gram tablet 1 g PO Q6H PRN (Reason: acid reflux/epigastric pain) Qty: 20 0RF No Action citalopram 10 mg tablet 10 mg PO DAILY 0RF amlodipine 5 mg tablet 5 mg PO DAILY 0RF hydrochlorothiazide 25 mg tablet 25 mg PO DAILY 0RF olmesartan 40 mg tablet 40 mg PO DAILY 0RF rosuvastatin 20 mg tablet 20 mg PO DAILY 0RF rivastigmine [Exelon Patch] 4.6 mg/24 hour patch 24 hour 4.6 mg transdermal DAILY 0RF potassium chloride [Klor-Con 10] 10 mEq tablet extended release 20 meq PO DAILY Qty: 20 0RF omeprazole 20 mg capsule,delayed release(DR/EC) 20 mg PO DAILY 0RF Discharge Orders: Discharge ED (Routine); Ordered 04/24/22 Ordered By: Dagoberto Cedillo Referrals: Jeffrey Sun MD [Primary Care Provider] - Discharge Diet: Regular Discharge Activity: Increase activity as tolerated Activity Restrictions/Additional Instructions: Follow-up with medical provider as directed in the next 7 to 10 days for reevaluation. Take medications as prescribed. Return to the ER or your medical provider if condition worsens. Please read and understand discharge instructions. Thank you for choosing [facility] for your healthcare needs today. Please realize this is an emergency room and that we are providing you with a medical screening exam and this may not be complete and all inclusive of all the testing and or work up that you may need to determine your ailment or severity of your illness. It is very important that you follow up as instructed or that you return to the Emergency Department should you have concerns or if your condition changes or worsens in any way. Coding Level of Care Code ED Manager Transit for Marty Casanova Exam Comprehensive
[2022-04-24 14:20] LABS: Basophils # 0.1 10^3/uL (0.0-0.1); Basophils % 0.7 %; Eosinophils # 0.2 10^3/uL (0.0-0.8); Eosinophils % 1.5 %; Hematocrit 40.6 % (37.0-47.0); Hemoglobin 13.3 g/dL (11.5-15.3); Lymphocytes # 2.6 10^3/uL (0.8-4.8); Mean Corpuscular HGB Conc 32.8 g/dL (30.0-36.0); Mean Corpuscular Hemoglobin 27.4 pg (28.0-34.0); Mean Corpuscular Volume 83.7 fl (81-99); Mean Platelet Volume 9.1 fL (7.4-10.4); Monocytes # 0.6 10^3/uL (0.2-0.9); Monocytes % 5.3 %; Neutrophils # 7.41 10^3/uL (1.8-7.7); Neutrophils % 68.1 %; Nucleated Red Blood Cells % 0 %; Platelet Count 311 10^3/cmm (130-400); Red Blood Count 4.85 10^6/uL (4.1-5.3); Red Cell Distribution Width 14.4 % (12.1-15.1); White Blood Count 10.9 10^3/uL (4.0-10.0)
--- NOTE | 2022-04-24 14:44 | CT_ITS ---
WS: [id number] CT ABDOMEN AND PELVIS NONCONTRAST HISTORY: centrally located--episodic abdominal pain TECHNIQUE: Imaging performed through the abdomen and pelvis. Coronal and sagittal reformats are submi tted. All CT scans at [facility] use at least one of these dose optimization techniques: auto mated exposure control; mA and/or kV adjustment per patient size (includes targeted exams where dose is matched to clinical indication); or iterative reconstruction. DLP: 2196.56 mGy.cm COMPARISON: 04/15/2022 Lower thorax: Lung bases are clear. Visualized heart is normal. No hiatal hernia. Liver: Normal size liver. No mass or bile duct dilatation. Gallbladder: Prior cholecystectomy. No bile duct dilatation. Pancreas: Mild pancreatic atrophy. Spleen: Normal size spleen. Low-attenuation 12 mm nodule in the spleen similar to the prior study wit h no calcification. Adrenal glands: Well-circumscribed LEFT adrenal mass 2.7 x 2.6 cm. Right kidney: Mild perinephric stranding. 2.7 x 2.4 cm renal cyst. No obstruction. Left kidney: Exophytic 1.1 cm cyst. No obstruction. Aorta: Mild atherosclerosis abdominal aorta with no aneurysm. No free fluid, intraperitoneal air or significant lymphadenopathy. GI tract: Appendix is not identified. There are a few scattered diverticula in the colon. No obstruct ion. No ischemic changes. Abdominal wall: Negative. No hernia. Pelvis: Prior hysterectomy. Osseous structures: L5 pars defects. CT/CT abdomen pelvis wo con [id number] IMPRESSION: 1. No acute intra-abdominal pelvic abnormalities are identified. 2. Prior hysterectomy and cholecystectomy. 3. Stable LEFT adrenal adenoma.
[2022-04-24 14:49] LABS: Alanine Aminotransferase 14 U/L (0-33); Albumin Level 4.2 g/dL (3.5-5.2); Alkaline Phosphatase 89 IU/L (35-105); Anion Gap 16.2 (5-19); Aspartate Amino Transferase 15 U/L (0-32); Blood Urea Nitrogen 20 mg/dL (8-23); Calcium 9.7 mg/dL (8.5-10.5); Carbon Dioxide 26 mmol/L (22-29); Chloride 97 mmol/L (98-107); Globulin 3.6 g/dL (1.3-4.6); Glucose 105 mg/dL (65-115); Lipase 19 U/L (13-60); Osmolality Calculated 285 mOsm/kg (285-295); Potassium 3.2 mmol/L (3.5-5.1); Sodium 136 mmol/L (136-145); Total Bilirubin 0.7 mg/dL (0.15-1.2); Total Protein 7.8 g/dL (6.6-8.7)
[2022-04-24 14:50] LABS: Add Urine Microscopic? NO; Charge for UA Resulting for Rev
[2022-04-24 14:53] LABS: Bilirubin Urine Neg (Negative); Blood Urine Neg (Negative); Glucose Urine UA Norm (Normal); Ketones Urine Negative (Negative); Leukocyte Esterase Urine Negative (Negative); Nitrate Urine Negative (Negative); Protein Urine Neg (Negative); Urine Appearance Clear (CLEAR); Urine Color Yellow (Yellow); Urobilinogen Urine Norm (Negative); pH Urine 5 (5-7)
--- NOTE | 2022-04-24 15:50 | ECG_ITS ---
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 Measurements Intervals [place] Rate: 51 P: 50 PA: 157 QRS: 67 QRSD: 96 T: 81 QT: 384 QTc: 355 Interpretive Statements SINUS BRADYCARDIA NONSPECIFIC T-WAVE ABNORMALITY Compared to ECG 04/15/2022 18:35:22 T-wave abnormality now present Sinus rhythm no longer present Electronically Signed On 04-25-2022 5:47:49 CDT by Dashawn Triplett M.D. [id number]
[2022-04-24] MEDS: potassium chloride ER 20 mEq Tablet PO (16:03)
[2022-04-24 16:25] LABS: Troponin(5th) Baseline 18 ng/L (0-10)
[2022-04-24 16:44] LABS: Troponin 5 2HR 16.52 ng/L (0-10); Troponin 5 2HR Delta -1.48 ABS# (0-10)
[2022-04-24 17:03] VITALS: BP 120/73; PULSE 76; RESP 18; O2SAT 97
== END 2022-04-24 17:25 | disposition home or self-care (01) ==
PROVIDERS: Emergency Provider Physician Assistant; PCP Family Medicine
DX: R10.13 Epigastric pain (principal); E87.6 Hypokalemia; F03.90 Unspecified dementia, unspecified severity, without behavioral disturbance, psychotic disturbance, mood disturbance, and anxiety; Z90.49 Acquired absence of other specified parts of digestive tract; Z90.710 Acquired absence of both cervix and uterus
CPT/HCPCS: 74176; 80053; 81003; 83690; 84484; 85025; 93005; 99283

== ENCOUNTER 2022-05-19 18:18 | Emergency (ER) | payer MEDICARE, MEDICAID, SELFPAY ==
[2022-05-19] VITALS (9 sets, daily range): BP systolic 85–136; BP diastolic 40–78; PULSE 48–71; RESP 14–19; TEMP 36.7; O2SAT 95–99
--- NOTE | 2022-05-19 18:34 | XRR_ITS ---
PROCEDURE INFORMATION: Exam: XR Chest Exam date and time: 05/19/2022 6:43 PM Age: 77 years old Clinical indication: Cough; Additional info: Dyspnea/cough TECHNIQUE: Imaging protocol: Radiologic exam of the chest. Views: 1 view. COMPARISON: CR XR chest 2V* [id number] 07/24/2021 12:10 PM FINDINGS: Lungs: Unremarkable. No consolidation. Pleural spaces: Unremarkable. No pleural effusion. No pneumothorax. Heart/Mediastinum: Unremarkable. No cardiomegaly. Bones/joints: Unremarkable. XR/XR chest 1V portable [id number] IMPRESSION: No acute findings.
--- NOTE | 2022-05-19 18:35 | ECG_ITS ---
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 Measurements Intervals [place] Rate: 49 P: -9 FL: 163 QRS: 34 QRSD: 103 T: 104 QT: 376 QTc: 339 Interpretive Statements SINUS BRADYCARDIA NONSPECIFIC ST & T-WAVE ABNORMALITY Compared to ECG 04/24/2022 16:00:37 No significant changes Electronically Signed On 05-20-2022 17:32:52 CDT by Lan Joshi M.D. [id number]
--- NOTE | 2022-05-19 19:06 | CTR_ITS ---
PROCEDURE INFORMATION: Exam: CT Head Without Contrast Exam date and time: 05/19/2022 8:40 PM Age: 77 years old Clinical indication: Injury or trauma; Fall; Blunt trauma (contusions or hematomas); Injury details: Per chart PT was weak and collapsed in the shower. PT denies injury but is very confused and could not answer questions; Additional info: Weakness TECHNIQUE: Imaging protocol: Computed tomography of the head without contrast. Radiation optimization: All CT scans at this facility use at least one of these dose optimization techniques: automated exposure control; mA and/or kV adjustment per patient size (includes targeted exams where dose is matched to clinical indication); or iterative reconstruction. COMPARISON: CT head wo con* [id number] 04/15/2022 4:44 PM RADIATION DOSE METRICS: Total DLP (mGy-cm): 1141.38 FINDINGS: Brain: There is marked cerebral atrophy. No intracranial hemorrhage. No midline shift. No cerebral sulcal effacement. Nava matter and white matter interfaces are preserved. Cerebral ventricles: No ventriculomegaly. Paranasal sinuses: Visualized sinuses are unremarkable. No fluid levels. Mastoid air cells: Visualized mastoid air cells are well aerated. Bones/joints: Unremarkable. No acute fracture. Soft tissues: Unremarkable. CT/CT head wo con* [id number] IMPRESSION: Negative for acute intracranial abnormality.
--- NOTE | 2022-05-19 19:18 | ED_ITS ---
HPI - Weakness General: Chief complaint: Weakness Stated complaint: WEAKNESS/ COLLAPSE IN SHOWER Time Seen by Provider: 05/19/22 18:25 Source: patient and EMS Mode of arrival: EMS Limitations: no limitations History of Present Illness: 77-year-old female who states that she has history of dementia and she has been having chronic weakness over the last 2 months without worsening. Family has been helping her out states that they tried to help her in the shower today and her legs became extremely weak and she just fell. She states this has been happening due to her feeling weak EMS states that she did have bradycardia along with some hypotension she denies any vomiting or diarrhea denies any pain anywhere denies any injuries from her fall. Associated symptoms: Denies chest pain, chills, dysuria, easy bruising, fever(s), nausea or vomiting Review of Systems Const: Denies: fever(s), chills, body aches or change in appetite Eyes: Denies: blurry vision or eye discomfort ENMT: Denies: throat pain or dental pain Card: Denies: chest pain Resp: Denies: dyspnea GI: Denies: abdominal pain, nausea, vomiting or diarrhea : Denies: dysuria Musc: Denies: neck pain or back pain Skin/Breast: Denies: rash Neuro: Reports: weakness in extremities Psych: Denies: depression Joaquim/Lymph: Denies: easy bruising All/Imm: Denies: urticaria PFSH ED PFSH: Medical History Cholecystectomy planned Dementia Surgical History History of cholecystectomy Social History Smoking and tobacco status: never smoked Alcohol intake: never Physical Exam Const: COMMON NORMALS: patient oriented x3 and healthy appearing HENMT: COMMON NORMALS: normocephalic and atraumatic HEAD & SCALP: normocephalic and atraumatic Eye: COMMON NORMALS: Equal, round and reactive pupils present and EOMs intact bilaterally PUPIL: Yes Equal, round and reactive pupils present Neck/C-Spine: COMMON NORMALS: full ROM and supple Chest: COMMONS NORMALS: normal inspection of the chest and normal palpation of entire chest wall Resp: COMMON NORMALS: normal respiratory effort, No retractions, No use of accessory muscles and clear to auscultation bilaterally AUSCULTATION: clear to auscultation bilaterally Cardio: COMMON NORMALS: regular rhythm and No murmurs present (Cardio) RATE: bradycardic RHYTHM: regular rhythm GI: COMMON NORMALS: Normal to inspection, nondistended, normoactive bowel sounds present, Soft to palpation, non-tender and no masses PALPATION: Yes Soft to palpation Extremity: COMMON NORMALS: normal to inspection and full ROM Neuro: COMMON NORMALS: patient oriented x3, moves all extremities and no focal motor deficits Psych: COMMON NORMALS: mental status grossly normal, Normal thought process present and cooperative THOUGHT PROCESS: Normal thought process present Skin: COMMON NORMALS: no rashes or lesions noted and no wounds GENERAL SKIN EXAM: no rashes or lesions noted Course Vital Signs: Vital signs: Vital Signs Temperature 98.1 F 05/19/22 18:30 Pulse Rate 54 L 05/19/22 22:06 Respiratory Rate 16 05/19/22 22:06 Blood Pressure 136/78 05/19/22 21:15 Pulse Oximetry 95 05/19/22 22:06 MDM - Weakness Medical Decision Making Patient presents here with generalized weakness along with multiple falls patient's blood work here is normal she is stable for discharge she is to follow-up with her PCP and to return if worsening. They were questioning possible half-way we will have case management and have her contact them and discuss possible half-way placement with him she is ambulatory here she is stable for discharge. Lab Data : 05/19/22 18:05 05/19/22 18:05 Radiology Impressions Chest X-Ray 05/19/22 18:34 IMPRESSION: No acute findings. Head CT 05/19/22 19:06 IMPRESSION: Negative for acute intracranial abnormality. Laboratory Results WBC 14.2 10^3/uL (4.0-10.0) H 05/19/22 18:05 RBC 4.68 10^6/uL (4.1-5.3) 05/19/22 18:05 Hgb 12.8 g/dL (11.5-15.3) 05/19/22 18:05 Hct 39.2 % (37.0-47.0) 05/19/22 18:05 MCV 83.8 fl (81-99) 05/19/22 18:05 MCH 27.4 pg (28.0-34.0) L 05/19/22 18:05 MCHC 32.7 g/dL (30.0-36.0) 05/19/22 18:05 RDW 14.2 % (12.1-15.1) 05/19/22 18:05 Plt Count 371 10^3/cmm (130-400) 05/19/22 18:05 MPV 9.1 fL (7.4-10.4) 05/19/22 18:05 Neut % (Auto) 58.1 % 05/19/22 18:05 Lymph % (Auto) 32.8 % 05/19/22 18:05 [place] % (Auto) 6.9 % 05/19/22 18:05 Eos % (Auto) 1.3 % 05/19/22 18:05 Baso % (Auto) 0.5 % 05/19/22 18:05 Neut # (Auto) 8.26 10^3/uL (1.8-7.7) H 05/19/22 18:05 Lymph # (Auto) 4.7 10^3/uL (0.8-4.8) 05/19/22 18:05 [place] # (Auto) 1.0 10^3/uL (0.2-0.9) H 05/19/22 18:05 Eos # (Auto) 0.2 10^3/uL (0.0-0.8) 05/19/22 18:05 Baso # (Auto) 0.1 10^3/uL (0.0-0.1) 05/19/22 18:05 Nucleated RBC % (auto) 0 % 05/19/22 18:05 Nucleated RBCs # 0.0 /100WBC 05/19/22 18:05 Sodium 139 mmol/L (136-145) 05/19/22 18:05 Potassium 3.1 mmol/L (3.5-5.1) L 05/19/22 18:05 Chloride 96 mmol/L (98-107) L 05/19/22 18:05 Carbon Dioxide 25 mmol/L (22-29) 05/19/22 18:05 Anion Gap 21.1 (5-19) H 05/19/22 18:05 BUN 27 mg/dL (8-23) H 05/19/22 18:05 Creatinine 1.1 mg/dL (0.5-0.9) H 05/19/22 18:05 GFR Calculation Not Reportable 05/19/22 18:05 Glucose 135 mg/dL (65-115) H 05/19/22 18:05 Calculated Osmolality 295 mOsm/kg (285-295) 05/19/22 18:05 Calcium 9.7 mg/dL (8.5-10.5) 05/19/22 18:05 Total Bilirubin 0.4 mg/dL (0.15-1.2) 05/19/22 18:05 AST 14 U/L (0-32) 05/19/22 18:05 ALT 11 U/L (0-33) 05/19/22 18:05 Alkaline Phosphatase 90 IU/L (35-105) 05/19/22 18:05 Creatine Kinase 42 U/L (26-192) 05/19/22 18:05 Troponin T Baseline 25 ng/L (0-10) H 05/19/22 18:05 Total Protein 7.0 g/dL (6.6-8.7) 05/19/22 18:05 Albumin 4.1 g/dL (3.5-5.2) 05/19/22 18:05 Globulin 2.9 g/dL (1.3-4.6) 05/19/22 18:05 TSH 2.42 uIU/mL (0.27-4.20) 05/19/22 18:05 Urine Color Yellow (Yellow) 05/19/22 21:25 Urine Appearance Clear (CLEAR) 05/19/22 21:25 Urine pH 5 (5-7) 05/19/22 21:25 Ur Specific Anton 1.015 (1.005-1.030) 05/19/22 21:25 Urine Protein Neg (Negative) 05/19/22 21:25 Urine Glucose (UA) Norm (Normal) 05/19/22 21: Urine Ketones Negative (Negative) 05/19/22 21:25 Urine Blood 3+ (Negative) H 05/19/22 21:25 Urine Nitrate Negative (Negative) 05/19/22 21: Urine Bilirubin 1+ (Negative) H 05/19/22 21: Urine Urobilinogen Norm mg/dL (Negative) 05/19/22 21:25 Ur Leukocyte Esterase Trace (Negative) H 05/19/22 21:25 Urine RBC 25-40 /hpf (0-2) H 05/19/22 21:25 Urine WBC 0-4 /hpf (0-5) H 05/19/22 21:25 Ur Squamous Epith Cells 10-15 /hpf (0-5) H 05/19/22 21:25 Amorphous Sediment Not Reportable 05/19/22 21:25 Urine Bacteria Trace /hpf (NONE) 05/19/22 21:25 Hyaline Casts 0-4 /lpf H 05/19/22 21:25 Urine Mucus 1+ /hpf 05/19/22 21:25 EKG Data EKG 1: I personally reviewed and interpreted this EKG as follows: EKG interpretation date: 05/19/22 EKG interpretation time: 19:25 Interpretation: sinus violet hr [address] or t wave abnormalities qrs 103 qtc 345 Discharge Plan Discharge Patient Disposition: Home Clinical Impression: Weakness, Fall Condition: Stable Prescriptions: No Action citalopram 10 mg tablet 10 mg PO DAILY 0RF amlodipine 5 mg tablet 5 mg PO DAILY 0RF hydrochlorothiazide 25 mg tablet 25 mg PO DAILY 0RF olmesartan 40 mg tablet 40 mg PO DAILY 0RF rosuvastatin 20 mg tablet 20 mg PO DAILY 0RF rivastigmine [Exelon Patch] 4.6 mg/24 hour patch 24 hour 4.6 mg transdermal DAILY 0RF omeprazole 20 mg capsule,delayed release(DR/EC) 20 mg PO DAILY 0RF Discharge Orders: Discharge ED (Routine); Ordered 05/19/22 Ordered By: Leslie Beltran Referrals: Jeffrey Sun MD [Primary Care Provider] - Discharge Diet: Advance as tolerated Discharge Activity: Resume usual activity Patient Instructions: Weakness (ED) Coding Level of Care Code ED Commissioning Engineer for Chg Fwd Exam Comprehensive
--- NOTE | 2022-05-19 19:20 | PC.PHAR ---
PT HAS AMS - MEDS VERIFIED USING EXTERNAL MED LIST LAST FILLED
[2022-05-19] MEDS: sodium chloride 0.9% 1,000 ML 999 ML IV (19:29)
[2022-05-19 20:26] LABS: Basophils # 0.1 10^3/uL (0.0-0.1); Basophils % 0.5 %; Eosinophils # 0.2 10^3/uL (0.0-0.8); Eosinophils % 1.3 %; Hematocrit 39.2 % (37.0-47.0); Hemoglobin 12.8 g/dL (11.5-15.3); Lymphocytes # 4.7 10^3/uL (0.8-4.8); Lymphocytes % 32.8 %; Mean Corpuscular HGB Conc 32.7 g/dL (30.0-36.0); Mean Corpuscular Hemoglobin 27.4 pg (28.0-34.0); Mean Corpuscular Volume 83.8 fl (81-99); Mean Platelet Volume 9.1 fL (7.4-10.4); Monocytes % 6.9 %; Neutrophils # 8.26 10^3/uL (1.8-7.7); Neutrophils % 58.1 %; Nucleated Red Blood Cells % 0 %; Platelet Count 371 10^3/cmm (130-400); Red Blood Count 4.68 10^6/uL (4.1-5.3); Red Cell Distribution Width 14.2 % (12.1-15.1); White Blood Count 14.2 10^3/uL (4.0-10.0)
[2022-05-19 20:34] LABS: Troponin(5th) Baseline 25 ng/L (0-10)
[2022-05-19 20:43] LABS: Alanine Aminotransferase 11 U/L (0-33); Albumin Level 4.1 g/dL (3.5-5.2); Alkaline Phosphatase 90 IU/L (35-105); Anion Gap 21.1 (5-19); Aspartate Amino Transferase 14 U/L (0-32); Blood Urea Nitrogen 27 mg/dL (8-23); Calcium 9.7 mg/dL (8.5-10.5); Carbon Dioxide 25 mmol/L (22-29); Chloride 96 mmol/L (98-107); Creatine Phosphokinase 42 U/L (26-192); Globulin 2.9 g/dL (1.3-4.6); Glucose 135 mg/dL (65-115); Osmolality Calculated 295 mOsm/kg (285-295); Potassium 3.1 mmol/L (3.5-5.1); Sodium 139 mmol/L (136-145); Thyroid Stimulating Hormone 2.42 uIU/mL (0.27-4.20); Total Bilirubin 0.4 mg/dL (0.15-1.2)
[2022-05-19 21:43] LABS: Add Urine Culture? No; Add Urine Microscopic? YES; Bacteria Urine TRACE /hpf; Bilirubin Urine 1+ (Negative); Blood Urine 3+ (Negative); Glucose Urine UA Norm (Normal); Hyaline Casts Urine 0-4 /lpf; Ketones Urine Negative (Negative); Leukocyte Esterase Urine Trace (Negative); Mucus Urine 1+ /hpf; Nitrate Urine Negative (Negative); Protein Urine Neg (Negative); RBC Urine 25-40 /hpf (0-2); Specific Gravity, Urine 1.015 (1.005-1.030); Urine Appearance Clear (CLEAR); Urine Color Yellow (Yellow); Urobilinogen Urine Norm (Negative); WBC Urine 0-4 /hpf (0-5); pH Urine 5 (5-7)
--- NOTE | 2022-05-20 15:24 | DCPLANNER ---
manager neonatal had message to speak with patient about possible jail placement. manager neonatal called patient, unable to speak with patient at this time and unable to leave a voicemail for patient at this time.
== END 2022-05-19 22:07 | disposition home or self-care (01) ==
PROVIDERS: Family Medicine; Emergency Provider Emergency Medicine; PCP Family Medicine
DX: R53.1 Weakness (principal); F03.90 Unspecified dementia, unspecified severity, without behavioral disturbance, psychotic disturbance, mood disturbance, and anxiety; W18.30XA Fall on same level, unspecified, initial encounter
CPT/HCPCS: 70450; 71045; 80053; 81001; 82550; 84443; 84484; 85025; 93005; 99285; J7030

== ENCOUNTER 2022-06-04 17:02 | Emergency (ER) | payer OTHER, SELFPAY ==
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
[2022-06-04 19:33] LABS: Alanine Aminotransferase 12 U/L (0-33); Albumin Level 3.9 g/dL (3.5-5.2); Alkaline Phosphatase 85 IU/L (35-105); Anion Gap 15.9 (5-19); Aspartate Amino Transferase 14 U/L (0-32); Blood Urea Nitrogen 22 mg/dL (8-23); Carbon Dioxide 27 mmol/L (22-29); Chloride 95 mmol/L (98-107); Globulin 2.8 g/dL (1.3-4.6); Glucose 130 mg/dL (65-115); Osmolality Calculated 285 mOsm/kg (285-295); Sodium 135 mmol/L (136-145); Total Bilirubin 0.2 mg/dL (0.15-1.2); Total Protein 6.7 g/dL (6.6-8.7)
[2022-06-04 19:34] LABS: Basophils % 0.2 %; Eosinophils # 0.1 10^3/uL (0.0-0.8); Eosinophils % 0.4 %; Hematocrit 38.1 % (37.0-47.0); Hemoglobin 11.8 g/dL (11.5-15.3); Lymphocytes # 1.2 10^3/uL (0.8-4.8); Lymphocytes % 8.1 %; Mean Corpuscular Hemoglobin 27.5 pg (28.0-34.0); Mean Corpuscular Volume 88.8 fl (81-99); Mean Platelet Volume 8.8 fL (7.4-10.4); Monocytes # 0.7 10^3/uL (0.2-0.9); Monocytes % 4.6 %; Neutrophils # 12.24 10^3/uL (1.8-7.7); Neutrophils % 86.1 %; Nucleated Red Blood Cells % 0 %; Platelet Count 276 10^3/cmm (130-400); Red Blood Count 4.29 10^6/uL (4.1-5.3); Red Cell Distribution Width 14.6 % (12.1-15.1); White Blood Count 14.2 10^3/uL (4.0-10.0)
[2022-06-04 20:13] LABS: Potassium 2.9 mmol/L (3.5-5.1)
[2022-06-04 20:35] VITALS: RESP 18
[2022-06-04] MEDS: morphine 4 mg/mL SDV 1 mL IM (20:35)
[2022-06-04] MEDS: potassium chloride ER 20 mEq Tablet 40 MEQ PO (20:35)
== END 2022-06-04 20:49 | disposition home or self-care (01) ==
PROVIDERS: Family Medicine; Emergency Provider Emergency Medicine; PCP Family Medicine
DX: S22.20XA Unspecified fracture of sternum, initial encounter for closed fracture (principal); V89.2XXA Person injured in unspecified motor-vehicle accident, traffic, initial encounter; F03.90 Unspecified dementia, unspecified severity, without behavioral disturbance, psychotic disturbance, mood disturbance, and anxiety
CPT/HCPCS: 70450; 71250; 72125; 74176; 80053; 85025; 96372; 99285; J2270

== ENCOUNTER 2022-07-25 14:04 | Emergency (ER) | payer MEDICARE, MEDICAID, SELFPAY ==
[2022-07-25 14:07] VITALS: BP 115/76; PULSE 62; RESP 18; TEMP 37.4; O2SAT 96
== END 2022-07-25 14:52 | disposition left against medical advice (07) ==
PROVIDERS: Emergency Provider Family Medicine; PCP Family Medicine
DX: Z53.21 Procedure and treatment not carried out due to patient leaving prior to being seen by health care provider (principal); R53.1 Weakness

== ENCOUNTER 2023-01-28 14:56 | Emergency (ER) | payer MEDICARE, MEDICAID, SELFPAY ==
[2023-01-28 15:02] VITALS: BP 137/76; PULSE 65; O2SAT 97
--- NOTE | 2023-01-28 15:24 | CTR_ITS ---
PROCEDURE INFORMATION: Exam: CT Cervical Spine Without Contrast Exam date and time: 01/28/2023 3:38 PM Age: 77 years old Clinical indication: Injury or trauma; Fall; Blunt trauma; Additional info: Pain TECHNIQUE: Imaging protocol: Computed tomography of the cervical spine without contrast. Radiation optimization: All CT scans at this facility use at least one of these dose optimization techniques: automated exposure control; mA and/or kV adjustment per patient size (includes targeted exams where dose is matched to clinical indication); or iterative reconstruction. REPORTING DATA: Count of CT and Cardiac NM exams in prior 12 months: This patient has received 8 known CTs and 0 known cardiac nuclear medicine studies in the 12 months prior to the current study. COMPARISON: CT cervical spin wo con* [id number] 06/04/2022 5:48 PM RADIATION DOSE METRICS: Total DLP (mGy-cm): 191.8 FINDINGS: Bones/joints: There is multilevel uncovertebral and facet hypertrophy with neural foramina narrowing. Multilevel degenerative disc disease. Lungs: Lung apices are normal. Soft tissues: Unremarkable. CT/CT cervical spin wo con* [id number] IMPRESSION: No acute abnormality.
--- NOTE | 2023-01-28 15:24 | XR_ITS ---
WS: [id number] EXAMINATION: XR hip BI 2V wo/w pel [id number] REASON FOR EXAM: pain COMPARISON: None available. ORDER DATE: 01/28/2023 3:41 PM TECHNIQUE: Frontal internal/external rotation views of the left hip were obtained. X-RAY FINDINGS: There are no fractures or dislocations. Normal motion with internal/external rotation is present. There are mild degenerative changes and joint narrowing. XR/XR hip BI 2V wo/w pel [id number] IMPRESSION: 1. No fractures or dislocations of the left hip. 2. Minor osteoarthritic changes in each hip.
--- NOTE | 2023-01-28 15:25 | XR_ITS ---
WS: [id number] EXAMINATION: XR chest 1V portable [id number] REASON FOR EXAM: dyspnea/cough COMPARISON: 05/19/2022 ORDER DATE: 01/28/2023 3:40 PM TECHNIQUE: A single, portable frontal chest x-ray was obtained. X-RAY FINDINGS: The lungs are clear. Mild chronic elevation of the right hemidiaphragm unchanged from previous. Pleural spaces are clear. No pleural effusions or pneumothorax. Cardiomediastinal silhouette is normal. No evidence for pulmonary edema. Soft tissue and osseous structures are unremarkable. XR/XR chest 1V portable [id number] IMPRESSION: Unremarkable frontal portable chest x-ray.
--- NOTE | 2023-01-28 15:25 | CT_ITS ---
WS: [id number] EXAMINATION: CT head wo con* [id number] REASON FOR EXAM: fall COMPARISON: 06/04/2022 ORDER DATE: 01/28/2023 3:31 PM TOTAL EXAM DLP: 1594.[address] scans at [facility] use at least one of these dose optimization techniques: automated ex posure control; mA and/or kV adjustment per patient size (includes targeted exams where dose is match ed to clinical indication); or iterative reconstruction. TECHNIQUE: AXIAL IMAGING WITH 2-D REFORMATS WITHOUT CONTRAST FINDINGS: Brain: There is moderate cerebral atrophy. No hemorrhage. Minimal chronic ischemic white matter higuera es consistent with patient age. No mass effect. Cerebral ventricles: No ventriculomegaly. Paranasal sinuses: Visualized sinuses are unremarkable. No fluid levels. Mastoid air cells: Visualized mastoid air cells are well aerated. Bones/joints: Unremarkable. No acute fracture. Soft tissues: Unremarkable. CT/CT head wo con* [id number] IMPRESSION: No acute intracranial abnormality.
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
[2023-01-28 15:44] LABS: Basophils # 0.1 10^3/uL (0.0-0.1); Basophils % 0.6 %; Eosinophils # 0.2 10^3/uL (0.0-0.8); Eosinophils % 2.9 %; Hematocrit 38.5 % (37.0-47.0); Hemoglobin 12.2 g/dL (11.5-15.3); Lymphocytes % 37.4 %; Mean Corpuscular HGB Conc 31.7 g/dL (30.0-36.0); Mean Corpuscular Hemoglobin 27.5 pg (28.0-34.0); Mean Corpuscular Volume 86.7 fl (81-99); Monocytes # 0.6 10^3/uL (0.2-0.9); Monocytes % 7.9 %; Neutrophils % 50.8 %; Nucleated Red Blood Cells % 0 %; Platelet Count 241 10^3/cmm (130-400); Red Blood Count 4.44 10^6/uL (4.1-5.3); Red Cell Distribution Width 15.6 % (12.1-15.1); White Blood Count 8.1 10^3/uL (4.0-10.0)
[2023-01-28] MEDS: morphine 4 mg/mL SDV 1 mL IVP (15:59)
[2023-01-28] MEDS: ondansetron 2 mg/ML SDV 2 mL 4 MG IVP (15:59)
[2023-01-28 16:04] LABS: Alanine Aminotransferase 11 U/L (0-33); Albumin Level 3.9 g/dL (3.5-5.2); Alkaline Phosphatase 74 U/L (35-105); Anion Gap 14.3 (5-19); Aspartate Amino Transferase 14 U/L (0-32); Blood Urea Nitrogen 19 mg/dL (8-23); Calcium 9.3 mg/dL (8.5-10.5); Carbon Dioxide 27 mmol/L (22-29); Chloride 101 mmol/L (98-107); Globulin 3.2 g/dL (1.3-4.6); Glucose 93 mg/dL (65-115); Osmolality Calculated 288 mOsm/kg (285-295); Potassium 4.3 mmol/L (3.5-5.1); Sodium 138 mmol/L (136-145); Total Bilirubin 0.5 mg/dL (0.15-1.2); Total Protein 7.1 g/dL (6.6-8.7)
--- NOTE | 2023-01-28 16:07 | ECG_ITS ---
[facility] Test Date: 2023-01-28 Pat Name: Petty Wiseman Department: Room: Gender: Female Hand Bander: : [phone] Requested By: Trevor Sandhu Order Number: [id number] Daniel MD: Lan Joshi M.D. Measurements Intervals [place] Rate: 59 P: -13 IA: 154 QRS: 52 QRSD: 97 T: 68 QT: 449 QTc: 448 Interpretive Statements SINUS BRADYCARDIA Compared to ECG 05/19/2022 19:25:39 T-wave abnormality no longer present Electronically Signed On 01-28-2023 16:27:34 CDT by Lan Joshi M.D. [email or web address]
[2023-01-28 16:51] VITALS: PULSE 63; RESP 18; O2SAT 98
[2023-01-28 17:03] LABS: Add Urine Microscopic? NO; Charge for UA Resulting for Rev
[2023-01-28 17:21] LABS: Bilirubin Urine Neg (Negative); Blood Urine Neg (Negative); Glucose Urine UA Norm (Normal); Ketones Urine Negative (Negative); Leukocyte Esterase Urine Negative (Negative); Nitrate Urine Negative (Negative); Protein Urine Neg (Negative); Specific Gravity, Urine 1.015 (1.005-1.030); Urine Appearance Clear (CLEAR); Urine Color Yellow (Yellow); Urobilinogen Urine Neg (Negative); pH Urine 5 (5-7)
== END 2023-01-28 18:09 | disposition home or self-care (01) ==
PROVIDERS: Emergency Provider Family Medicine; PCP Family Medicine
DX: G30.9 Alzheimer's disease, unspecified (principal); F02.80 Dementia in other diseases classified elsewhere, unspecified severity, without behavioral disturbance, psychotic disturbance, mood disturbance, and anxiety; W19.XXXA Unspecified fall, initial encounter
CPT/HCPCS: 70450; 71045; 72125; 73521; 80053; 81003; 85025; 93005; 96374; 96375; 99285; J2270; J2405

== ENCOUNTER → 2023-06-29 13:59 | Outpatient (BNVA) | payer MEDICARE, MEDICAID, SELFPAY | PROVIDERS: PCP Family Medicine; Visit Provider Podiatrist Foot & Ankle Surgery | DX: L60.3 Nail dystrophy (principal) | CPT/HCPCS: 99203 ==

== ENCOUNTER 2024-02-22 11:02 | Emergency (ER) | payer MEDICARE, MEDICAID, SELFPAY ==
[2024-02-22 11:10] VITALS: BP 144/61; PULSE 61; RESP 16; TEMP 36.9; O2SAT 99
--- NOTE | 2024-02-22 11:14 | XR_ITS ---
WS: [id number] Exam: XR shoulder LT min 2V* [id number] Date/Time of Exam: 02/22/2024 11:14 AM Reason For Exam: injury There is a comminuted fracture of the head and surgical neck of the humerus. No significant displacem ent noted. No dislocation. Severe degenerative change of the glenohumeral joint with [id number] art iculation. Prominent osteophyte formation projects from the inferior margin of the glenoid. Mild AC j tammy DJD. IMPRESSION: 1. Comminuted fracture of the head and surgical neck of the humerus without significant displacement. 2. End-stage osteoarthritis of the glenohumeral joint with [id number] and osteophytosis.
--- NOTE | 2024-02-22 11:14 | XR_ITS ---
WS: [id number] Exam: XR elbow LT min 3V* [id number] Date/Time of Exam: 02/22/2024 11:14 AM Reason For Exam: injury No acute fracture or dislocation. Articular relationships are intact. No joint effusion. IMPRESSION: 1. No fracture or other significant finding.
--- NOTE | 2024-02-22 11:18 | ED_ITS ---
HPI - Extremity Problem General: Chief complaint: Extremity Injury, Upper Stated complaint: Fall Time Seen by Provider: 02/22/24 11:11 Source: patient and EMS Mode of arrival: EMS History of Present Illness: 78-year-old female with severe dementia comes in complaining of left shoulder and arm pain. No report of falls or striking her head no history of any particular injury. She lives in a close dementia unit. Suddenly began complaining of this pain this morning no previous injury that they are aware of. There is no external signs of injury or deformity. She has had frequent falls in the past. MD Complaint: extremity pain Pain Consistency: constant Relieving factors: nothing Exacerbating factors: nothing Associated symptoms: Deny arthralgias, chest pain, fever(s), myalgias, rash or short of breath Review of Systems General: Reports: ROS unobtainable due to mental status Const: Denies: fever(s) Card: Denies: chest pain Skin/Breast: Denies: rash PFSH ED PFSH: Medical History Cholecystectomy planned Dementia Surgical History History of cholecystectomy Social History Smoking and tobacco/nicotine status: never used tobacco/nicotine Alcohol intake: never Substance/Drug Use: never Physical Exam Const: GENERAL APPEARANCE: cooperative ORIENTATION/CONSCIOUSNESS: Yes awake HENMT: COMMON NORMALS: normocephalic, atraumatic and hearing grossly normal bilaterally HEAD & SCALP: normocephalic and atraumatic Resp: COMMON NORMALS: normal respiratory effort, No retractions, No use of accessory muscles and clear to auscultation bilaterally AUSCULTATION: clear to auscultation bilaterally Cardio: COMMON NORMALS: regular rate, regular rhythm and No murmurs present (Cardio) RATE: regular rate RHYTHM: regular rhythm GI: COMMON NORMALS: Soft to palpation and No hepatosplenomegaly present AUSCULTATION: Yes normoactive bowel sounds PALPATION: Yes Soft to palpation, No Tenderness to palpation present (GI), No Guarding due to palpation present (GI) and Yes No hepatosplenomegaly present Extremity: COMMON NORMALS: normal to inspection, capillary refill normal, no clubbing, cyanosis or edema, no calf tenderness and no pedal edema OTHER: Examination of the shoulder and elbow the left arm there is no deformity no bruising no laceration. Seems to complain most of her pain with any manipulation or palpation at the shoulder I am able to flex and extend a little bit through the elbow and pronate and supinate without eliciting much pain no pain at the wrist or in the hand. Skin: COMMON NORMALS: no rashes or lesions noted GENERAL SKIN EXAM: no rashes or lesions noted Course Vital Signs: Vital signs: Vital Signs Temperature 98.4 F 02/22/24 11:10 Pulse Rate 61 02/22/24 11:10 Respiratory Rate 16 02/22/24 11:10 Blood Pressure 144/61 02/22/24 11:10 Pulse Oximetry 99 02/22/24 11:10 Oxygen Delivery Me thod Room Air 02/22/24 11:10 MDM - Extremity (Nontraumatic) Medical Decision Making Right proximal humerus fracture. Will place in a sling hydrocodone for pain refer to orthopedics Medical Records I reviewed the patient's medical records. Lab Data I reviewed the patient's lab results. All radiology interpretation(s) finalized by discharge Discharge Plan Discharge Patient Disposition: Home Clinical Impression: Fracture of proximal end of humerus Condition: Stable Prescriptions: New hydrocodone-acetaminophen 5-325 mg tablet 1 tab PO Q6H PRN (Reason: pain) Qty: 15 0RF No Action memantine 10 mg tablet 10 tab PO BID citalopram 10 mg tablet 10 mg PO QAM olmesartan 40 mg tablet 40 mg PO QAM rosuvastatin 20 mg tablet 20 mg PO QPM furosemide 40 mg tablet 40 mg PO DAILY acetaminophen 325 mg Tablet 650 mg PO QID PRN (Reason: Pain) potassium chloride 20 mEq tablet,ER particles/crystals 20 meq PO DAILY Milk of Magnesia 400 mg/5 mL Suspension 30 ml PO DAILY PRN (Reason: Constipation) bisacodyl 10 mg Suppository 10 mg MI DAILY PRN (Reason: Constipation) Fleet Enema 19-7 gram/118 mL Enema 118 ml MI DAILY PRN (Reason: Constipation) Discharge Orders: Discharge ED (Routine); Ordered 02/22/24 Ordered By: Trevor Bailey Referrals: Jeffrey Sun MD [Primary Care Provider] - Discharge Diet: Usual diet Discharge Activity: Resume usual activity Patient Instructions: Opioid Safety, Pain Management Activity Restrictions/Additional Instructions: Thank you for choosing [facility] for your healthcare needs today. Please realize this is an emergency room and that we are providing you with a medical screening exam and this may not be complete and all inclusive of all the testing and or work up that you may need to determine your ailment or severity of your illness. It is very important that you follow up as instructed or that you return to the Emergency Department should you have concerns or if your condition changes or worsens in any way. You are seen today with left arm pain you have a proximal humerus fracture. Case management will make arrangements for you to see orthopedics in follow-up use pain medications as needed Coding Level of Care Code ED Support Dba for Marty Casanova
[2024-02-22] MEDS: fentaNYL 50 mcg/mL INJ 2mL 25 MCG IVP (11:34)
--- NOTE | 2024-02-22 12:01 | DCPLANNER ---
Message sent to Ortho for a follow up- Proximal humerus fracture
== END 2024-02-22 12:43 | disposition home or self-care (01) ==
PROVIDERS: Emergency Provider Family Medicine; PCP Family Medicine
DX: S42.202A Unspecified fracture of upper end of left humerus, initial encounter for closed fracture (principal); F03.90 Unspecified dementia, unspecified severity, without behavioral disturbance, psychotic disturbance, mood disturbance, and anxiety; X58.XXXA Exposure to other specified factors, initial encounter; Y92.129 Unspecified place in nursing home as the place of occurrence of the external cause
CPT/HCPCS: 73030; 73080; 96374; 99284; J3010

== ENCOUNTER → 2024-02-24 14:55 | Outpatient (BNVA) | payer MEDICARE, MEDICAID, SELFPAY | PROVIDERS: PCP Family Medicine; Referring Provider Family Medicine; Visit Provider Specialist | DX: S42.292A Other displaced fracture of upper end of left humerus, initial encounter for closed fracture; X58.XXXA Exposure to other specified factors, initial encounter | CPT/HCPCS: 73030; 99204 ==

== ENCOUNTER 2024-03-26 09:45 | Emergency (ER) | payer MEDICARE, MEDICAID, SELFPAY ==
[2024-03-26 09:48] VITALS: BP 184/85; PULSE 60; RESP 18; TEMP 36.8; O2SAT 97
--- NOTE | 2024-03-26 09:55 | ECG_ITS ---
[facility] Test Date: 2024-03-26 Pat Name: Petty Wiseman Department: Room: Gender: Female Nursing Informatics Specialist: : [id number] Requested By: Iona Sandhu Order Number: [id number] Daniel MD: Hector Pemberton M.D. Measurements Intervals [place] Rate: 62 P: 74 IL: 163 QRS: 41 QRSD: 94 T: 81 QT: 433 QTc: 441 Interpretive Statements SINUS RHYTHM Nonspecific T wave changes. Compared to ECG 01/28/2023 16:07:03 No significant change Electronically Signed On 03-26-2024 12:05:02 CDT by Hector Pemberton M.D. [email or web address]
--- NOTE | 2024-03-26 09:55 | XRR_ITS ---
PROCEDURE INFORMATION: Exam: XR Chest Exam date and time: 03/26/2024 10:14 AM Age: 78 years old Clinical indication: Dyspnea; Additional info: Weakness TECHNIQUE: Imaging protocol: Radiologic exam of the chest. Views: 1 view. COMPARISON: CR XR chest 1V portable [id number] 01/28/2023 3:50 PM FINDINGS: Lungs: Unremarkable. No consolidation. Pleural spaces: Unremarkable. No pleural effusion. No pneumothorax. Heart/Mediastinum: Unremarkable. No cardiomegaly. Bones/joints: Unremarkable. XR/XR chest 1V portable [id number] IMPRESSION: No acute findings.
--- NOTE | 2024-03-26 09:55 | CTR_ITS ---
PROCEDURE INFORMATION: Exam: CT Head Without Contrast Exam date and time: 03/26/2024 10:18 AM Age: 78 years old Clinical indication: Altered mental status/memory loss; Confusion or disorientation; Additional info: Encephalopathy, altered mental status TECHNIQUE: Imaging protocol: Computed tomography of the head without contrast. Radiation optimization: All CT scans at this facility use at least one of these dose optimization techniques: automated exposure control; mA and/or kV adjustment per patient size (includes targeted exams where dose is matched to clinical indication); or iterative reconstruction. COMPARISON: CT head wo con* [id number] 01/28/2023 3:38 PM RADIATION DOSE METRICS: Total DLP (mGy-cm): 1109.48 FINDINGS: Brain: . No hemorrhage. Periventricular white matter lucency represents atherosclerotic encephalopathic changes. Cerebral ventricles: No ventriculomegaly. Ventricular prominence proportionate to the degree of atrophy observed. Paranasal sinuses: Visualized sinuses are unremarkable. No fluid levels. Mastoid air cells: Visualized mastoid air cells are well aerated. Bones: Unremarkable. No acute fracture. Hyperostosis frontalis interna. Soft tissues: Unremarkable. Other findings: No mass effect. CT/CT head wo con* [id number] IMPRESSION: No acute intracranial abnormality.
--- NOTE | 2024-03-26 10:02 | ED_ITS ---
HPI - Weakness 2 General: Chief complaint: Weakness Stated complaint: WEAKNESS Time Seen by Provider: 03/26/24 09:52 History of Present Illness: Patient presents to the emergency room by ambulance from a snf with complaint of weakness and a fall yesterday. The patient does not report any pain. EMS reports that she has an old left arm fracture. She has no focal motor deficits but has advanced dementia and does not answer any questions appropriately and no other history is able to be obtained at this time. Review of Systems 2 General: Reports: ROS unobtainable due to medical condition and ROS unobtainable due to mental status PFSH ED 2 PFSH: Medical History Cholecystectomy planned Dementia Surgical History History of cholecystectomy Social History Smoking and tobacco/nicotine status: never used tobacco/nicotine Alcohol intake: never Substance/Drug Use: never Physical Exam 2 Narrative: EXAM NARRATIVE: General: Alert, but appears confused Skin: Warm, dry_. Head: Normocephalic, atraumatic. Neck: Supple, trachea midline. Eye: Extraocular movements are intact. Ears, nose, mouth and throat: tacky oral mucosa. Cardiovascular: Regular rate and rhythm, Normal peripheral perfusion. Respiratory: Lungs are clear to auscultation, respirations are non-labored, breath sounds are equal, Symmetrical chest wall expansion. Gastrointestinal: Soft, Nontender, Non distended, Normal bowel sounds. Musculoskeletal: Normal ROM, no deformity. Neurological: Patient is not oriented to person or place. does follow command occasionally. No focal neurological deficit observed. Psychiatric: Unable to assess Course 2 Vital Signs: Vital signs: Vital Signs Temperature 98.2 F 03/26/24 09:48 Pulse Rate 60 03/26/24 09:48 Respiratory Rate 18 03/26/24 09:48 Blood Pressure 184/85 03/26/24 09:48 Pulse Oximetry 97 03/26/24 09:48 Oxygen Delivery Me thod Room Air 03/26/24 09:48 MDM - Weakness Medical Decision Making Medical decision making: Differential diagnosis for patient presenting with generalized weakness including but not limited to and based on the above HPI, review of systems and physical exam: Sepsis. Dehydration. Renal failure. Electrolyte abnormalities. Anemia. Congestive heart failure. Hypotension. Coronary syndrome. Hepatitis. Cirrhosis. Infections such as pneumonia, urinary tract infection, Tick bourne illness, Cellulitis, Viral infections including influenza and Covid-19. Workup: labwork and lab/exam driven imaging ordered to evaluate, rule in and rule out above pathologies. Chest x-ray: No acute process. No infiltrate. No pneumothorax. No cardiomegaly. This was reviewed and interpreted by myself the ER physician. CT head: No acute intracranial process. no intracranial hemorrhage, no evidence of infarct. no evidence of acute fracture.This was reviewed and interpreted by myself the ER physician. EKG: Time 953 rate 62. Normal sinus rhythm, No ST-T changes, no ectopy, normal DE & QRS intervals, This was reviewed and interpreted by myself the ER physician at 955 Lab Review: Laboratory results were reviewed and interpreted by myself the emergency room physician. White count is 8.7. Hemoglobin is 13. Platelets 240. No renal failure. BUN and creatinine are 18 and 0.5. Glucose 91. LFTs are normal. Lactate is 1. I reviewed the patient's medical record. Reexamination: Shortly after arrival, probably about 30 minutes, the patient began to wander. She got up out of her bed and would not go back into it. She is wandering the halls. She has no pain. She is pleasant but does not want to go back to bed. She has no pain anywhere. No focal motor deficits. Assessment and plan: Fall - Discharged home - Discussed findings and plan with patient. Answered any questions. - All laboratory values were reviewed and interpreted personally by myself, the ER physician - All imaging was reviewed and interpreted personally by myself, the ER physician. - Evaluation and treatment of this problem were appropriate in the emergency setting Lab Data 03/26/24 10:38 03/26/24 10:38 Radiology Impressions Chest X-Ray 03/26/24 09:55 IMPRESSION: No acute findings. Head CT 03/26/24 09:55 IMPRESSION: No acute intracranial abnormality. Laboratory Results WBC 8.76 10^3/uL (3.29-11.43) 03/26/24 10:38 RBC 4.64 10^6/uL (3.85-5.65) 03/26/24 10:38 Hgb 13.00 g/dL (11.27-16.99) 03/26/24 10:38 Hct 44.0 % (36-47) 03/26/24 10:38 MCV 94.8 fl (85-98) 03/26/24 10:38 MCH 28.0 pg (27-33) 03/26/24 10:38 MCHC 29.5 g/dL (30-55) L 03/26/24 10:38 RDW 15.6 % (12.1-15.1) H 03/26/24 10:38 Plt Count 240 10^3/cmm (157-399) 03/26/24 10:38 MPV 8.7 fL (7.4-10.4) 03/26/24 10:38 Neut % (Auto) 60.9 % 03/26/24 10:38 Lymph % (Auto) 25.9 % 03/26/24 10:38 [place] % (Auto) 7.8 % 03/26/24 10:38 Eos % (Auto) 4.5 % 03/26/24 10:38 Baso % (Auto) 0.6 % 03/26/24 10:38 Neut # (Auto) 5.34 10^3/uL (1.8-7.7) 03/26/24 10:38 Lymph # (Auto) 2.3 10^3/uL (0.8-4.8) 03/26/24 10:38 [place] # (Auto) 0.7 10^3/uL (0.2-0.9) 03/26/24 10:38 Eos # (Auto) 0.4 10^3/uL (0.0-0.8) 03/26/24 10:38 Baso # (Auto) 0.1 10^3/uL (0.0-0.1) 03/26/24 10:38 Nucleated RBC % (auto) 0 % 03/26/24 10:38 Nucleated RBCs # 0.0 /100WBC 03/26/24 10:38 Sodium 137 mmol/L (136-145) 03/26/24 10:38 Potassium 4.0 mmol/L (3.5-5.1) 03/26/24 10:38 Chloride 102 mmol/L (98-107) 03/26/24 10:38 Carbon Dioxide 27 mmol/L (22-29) 03/26/24 10:38 Anion Gap 12.0 (5-19) 03/26/24 10:38 BUN 18 mg/dL (8-23) 03/26/24 10:38 Creatinine 0.5 mg/dL (0.5-0.9) 03/26/24 10:38 GFR Calculation Not Reportable 03/26/24 10:38 Glucose 91 mg/dL (65-115) 03/26/24 10:38 Calculated Osmolality 285 mOsm/kg (285-295) 03/26/24 10:38 Lactic Acid 1.0 mmol/L (0.5-2.2) 03/26/24 10:38 Calcium 9.1 mg/dL (8.5-10.5) 03/26/24 10:38 Total Bilirubin 0.4 mg/dL (0.15-1.2) 03/26/24 10:38 AST 11 U/L (0-32) 03/26/24 10:38 ALT 8 U/L (0-33) 03/26/24 10:38 Alkaline Phosphatase 109 U/L (35-105) H 03/26/24 10:38 C-Reactive Protein 3.0 mg/L (0.0-4.9) 03/26/24 10:38 Total Protein 7.0 g/dL (6.6-8.7) 03/26/24 10:38 Albumin 3.6 g/dL (3.5-5.2) 03/26/24 10:38 Globulin 3.4 g/dL (1.3-4.6) 03/26/24 10:38 All radiology interpretation(s) finalized by discharge Discharge Plan Discharge Patient Disposition: Home Clinical Impression: Fall Condition: Stable Prescriptions: No Action memantine 10 mg tablet 10 tab PO BID citalopram 10 mg tablet 10 mg PO QAM olmesartan 40 mg tablet 40 mg PO QAM rosuvastatin 20 mg tablet 20 mg PO QPM furosemide 40 mg tablet 40 mg PO DAILY acetaminophen 325 mg Tablet 650 mg PO QID PRN (Reason: Pain) potassium chloride 20 mEq tablet,ER particles/crystals 20 meq PO DAILY magnesium hydroxide [Milk of Magnesia] 400 mg/5 mL Suspension 30 ml PO DAILY PRN (Reason: Constipation) bisacodyl 10 mg Suppository 10 mg DE DAILY PRN (Reason: Constipation) Fleet Enema 19-7 gram/118 mL Enema 118 ml DE DAILY PRN (Reason: Constipation) hydrocodone-acetaminophen 5-325 mg tablet 1 tab PO Q6H PRN (Reason: pain) Qty: 15 0RF Discharge Orders: Discharge ED (Routine); Ordered 03/26/24 Ordered By: Iona Borges Referrals: Jeffrey Sun MD [Primary Care Provider] - 4-7 days Discharge Diet: Usual diet Discharge Activity: Resume usual activity Patient Instructions: Fall Prevention for Older Adults (ED) Activity Restrictions/Additional Instructions: Thank you for choosing [facility] for your healthcare needs today. Please realize this is an emergency room and that we are providing you with a medical screening exam and this may not be complete and all inclusive of all the testing and or work up that you may need to determine your ailment or severity of your illness. You have been screened and evaluated and felt safe for discharge. Health conditions do change or evolve sometimes and as such it is important that you follow up with your Primary Doctor to be re checked, 3-5 days is a general good time frame for follow up. You are always welcome to return to the ED for re assessment if your symptoms are worsening or you have new concerns Coding Level of Care Code ED Space Physicist for Marty Casanova
[2024-03-26 10:53] LABS: Basophils # 0.1 10^3/uL (0.0-0.1); Basophils % 0.6 %; Eosinophils # 0.4 10^3/uL (0.0-0.8); Eosinophils % 4.5 %; Lymphocytes # 2.3 10^3/uL (0.8-4.8); Lymphocytes % 25.9 %; Mean Corpuscular HGB Conc 29.5 g/dL (30-55); Mean Corpuscular Volume 94.8 fl (85-98); Mean Platelet Volume 8.7 fL (7.4-10.4); Monocytes # 0.7 10^3/uL (0.2-0.9); Monocytes % 7.8 %; Neutrophils # 5.34 10^3/uL (1.8-7.7); Neutrophils % 60.9 %; Nucleated Red Blood Cells % 0 %; Platelet Count 240 10^3/cmm (157-399); Red Blood Count 4.64 10^6/uL (3.85-5.65); Red Cell Distribution Width 15.6 % (12.1-15.1); White Blood Count 8.76 10^3/uL (3.29-11.43)
[2024-03-26 11:18] LABS: Alanine Aminotransferase 8 U/L (0-33); Albumin Level 3.6 g/dL (3.5-5.2); Alkaline Phosphatase 109 U/L (35-105); Aspartate Amino Transferase 11 U/L (0-32); Blood Urea Nitrogen 18 mg/dL (8-23); Calcium 9.1 mg/dL (8.5-10.5); Carbon Dioxide 27 mmol/L (22-29); Chloride 102 mmol/L (98-107); Globulin 3.4 g/dL (1.3-4.6); Glucose 91 mg/dL (65-115); Osmolality Calculated 285 mOsm/kg (285-295); Sodium 137 mmol/L (136-145); Total Bilirubin 0.4 mg/dL (0.15-1.2)
== END 2024-03-26 11:40 | disposition home or self-care (01) ==
PROVIDERS: Emergency Provider Emergency Medicine; PCP Family Medicine
DX: Z04.3 Encounter for examination and observation following other accident (principal); W19.XXXA Unspecified fall, initial encounter; Y92.129 Unspecified place in nursing home as the place of occurrence of the external cause
CPT/HCPCS: 36415; 70450; 71045; 80053; 83605; 85025; 86140; 87040; 93005; 99285

== ENCOUNTER → 2024-03-30 14:37 | Outpatient (BNVA) | payer MEDICARE, MEDICAID, SELFPAY | PROVIDERS: PCP Family Medicine; Visit Provider Podiatrist Foot & Ankle Surgery | DX: L60.3 Nail dystrophy (principal); Q82.8 Other specified congenital malformations of skin | CPT/HCPCS: 11721; 17110 ==

== ENCOUNTER → 2024-06-29 14:11 | Outpatient (BNVA) | payer MEDICARE, MEDICAID, SELFPAY | PROVIDERS: PCP Family Medicine; Visit Provider Podiatrist Foot & Ankle Surgery | DX: L60.3 Nail dystrophy (principal); Q82.8 Other specified congenital malformations of skin; I73.9 Peripheral vascular disease, unspecified | CPT/HCPCS: 11056; 11721 ==

== ENCOUNTER → 2024-10-12 13:37 | Outpatient (BNVA) | payer MEDICARE, MEDICAID, SELFPAY | PROVIDERS: PCP Family Medicine; Visit Provider Podiatrist Foot & Ankle Surgery | DX: L60.3 Nail dystrophy (principal); Q82.8 Other specified congenital malformations of skin; I73.9 Peripheral vascular disease, unspecified | CPT/HCPCS: 11721; 17110 ==

== ENCOUNTER → 2025-01-18 13:51 | Outpatient (BNVA) | payer MEDICARE, MEDICAID, SELFPAY | PROVIDERS: PCP Family Medicine; Visit Provider Podiatrist Foot & Ankle Surgery | DX: I73.9 Peripheral vascular disease, unspecified (principal); L60.8 Other nail disorders; Q82.8 Other specified congenital malformations of skin; L60.3 Nail dystrophy | CPT/HCPCS: 11721; 17110 ==

== ENCOUNTER → 2025-08-02 13:24 | Outpatient (BNVA) | payer MEDICARE, MEDICAID, SELFPAY | PROVIDERS: PCP Family Medicine; Visit Provider Podiatrist Foot & Ankle Surgery | DX: I73.9 Peripheral vascular disease, unspecified (principal); L60.3 Nail dystrophy; Q82.8 Other specified congenital malformations of skin; L60.8 Other nail disorders | CPT/HCPCS: 11721; 17110 ==